=== PATIENT | female | born 1995 | race Caucasian/White ===

== ENCOUNTER 2022-02-18 07:00 | Outpatient (CLI) | payer BC, SELFPAY ==
--- NOTE | ~2022-02-18 | XR_ITS ---
EXAMINATION: XR hysterosalpingogram DATE: 02/18/2022 12:11 INDICATION: Infertility TECHNIQUE: Multiple fluoroscopic images were obtained during contrast infusion into the endometrial c anal of the uterus by the primary physician. Fluoroscopy exposure time was 0.4 minutes. A total of 3 fluoroscopic images were recorded. FINDINGS: The retroverted uterine cavity demonstrates normal morphology. The fallopian tubes are normal in alexandru iber and patent bilaterally. There is normal spillage of contrast into the peritoneum on both sides. IMPRESSION: 1. Normal hysterosalpingogram. Reviewed, dictated and finalized at location A.
--- NOTE | 2022-02-18 13:23 | W.PM.PROC2 ---
Procedure Note - Detailed Date of Procedure 02/18/22 Pre-op Diagnosis INFERTLY IT Post-op Diagnosis Same Procedure Performed Hysterosalpingogram Surgeon Brown Marie MD Anesthesia None Indications unexplained infertility Findings normal hysterosalpingogram Description of Procedure the patient was placed on the fluoroscopy table. A speculum was placed in the vagina. Cervix was grasped with a tenaculum. The catheter was placed the uterine cavity and the bulb was inflated. The speculum was removed with the angiocath still placed in the intrauterine cavity. Dye was then removed. The catheter. Fluoroscopic images obtained this process. Patient experienced some moderate to severe discomfort. The balloon of the catheter was deflated and the catheter was removed while the images were being obtained. The procedure was terminated. Patient tolerated the procedure well. There were no complications. Estimated Blood Loss 0 Complications No immediate complications Condition Stable Disposition Other
== END 2022-02-18 10:21 | disposition home or self-care (01) ==
PROVIDERS: Visit Provider Obstetrics & Gynecology
DX: Z01.89 Encounter for other specified special examinations (principal); N97.9 Female infertility, unspecified
CPT/HCPCS: 58340; 74740; Q9966

== ENCOUNTER 2022-02-18 10:30 | Outpatient (CLI) | payer BC, SELFPAY ==
[2022-02-18 11:24] LABS: Beta HCG Quantitative < 2.39 mIU/ML
== END 2022-02-18 10:31 | disposition home or self-care (01) ==
PROVIDERS: Visit Provider Advanced Practice Midwife
DX: Z01.89 Encounter for other specified special examinations (principal)
CPT/HCPCS: 36415; 84702

== ENCOUNTER 2022-12-08 13:47 | Outpatient (RCR) | payer BC, SELFPAY ==
[2022-12-08 14:26] LABS: Alanine Aminotransferase 23 U/L (6-35); Albumin Level 3.8 g/dL (3.5-5.1); Alkaline Phosphatase 102 U/L (38-126); Anion Gap 7 mmol/L (8-16); Aspartate Amino Transferase 22 U/L (14-36); Bilirubin,Total 0.5 mg/dL (0.2-1.3); Blood Urea Nitrogen 5 mg/dL (7-17); Calcium 9.2 mg/dL (8.4-10.2); Carbon Dioxide 26 mmol/L (22-30); Chloride 102 mmol/L (98-107); Estimated Glomerular Filt Rate > 60; Glucose 82 mg/dL (65-110); Potassium 4.1 mmol/L (3.4-5.0); Sodium 135 mmol/L (137-145)
[2022-12-09] MEDS: RHO(D) IMMUNE GLOBULIN 300 MCG/2 ML SYRINGE IM (13:10)
== END 2023-03-08 23:59 | disposition home or self-care (01) ==
LOC: ANHLAB 13:47
PROVIDERS: Visit Provider Obstetrics & Gynecology
DX: O36.0130 Maternal care for anti-D [Rh] antibodies, third trimester, not applicable or unspecified (principal)
CPT/HCPCS: 36415; 80053; 85461; 86850; 86900; 86901; 90384; 96372; J2790

== ENCOUNTER 2023-01-22 17:42 | Inpatient (IN) | payer BC, SELFPAY ==
[2023-01-22] VITALS (14 sets, daily range): BP systolic 84–130; BP diastolic 62–86; PULSE 92–119; TEMP 37; BMI 33.5
--- NOTE | 2023-01-22 18:29 | LDADM ---
This patient, Veronique Rivera, was admitted to Labor/Delivery/Recovery 108 on 01/22/23 at 17:42. Plans for labor, pain management and were discussed with patient. Patient/family oriented to hospital policies and general routines including ID bracelet, bed and alarms, visiting hours, pain management, procedures, bathroom and other care routines, personal items, smoking policy, room service/diet and guest tray routines, security routines, and visiting hours. Patient/Family are encouraged to report perceived risks to care and to ask questions if they do not understand what they are told or what they should do. See OBIX for further documentation.
[2023-01-22 19:19] LABS: Basophils Percent Auto 0.2 % (0.2-1.2); Eosinophils Absolute Auto 0.1 K/mm3 (0-0.3); Eosinophils Percent Auto 0.5 % (0-4.4); Hematocrit 35.2 % (37.0-47.0); Hemoglobin 11.8 g/dL (12.0-15.0); Immature Granulocyte Absolute 0.05 K/mm3 (0.00-0.031); Immature Granulocyte Percent A 0.4 % (0-0.5); Lymphocytes Absolute Auto 2.27 K/mm3 (0.9-3.2); Lymphocytes Percent Auto 17.1 % (18.3-44.2); Mean Corpuscular HGB Conc 33.5 g/dl (32-36); Mean Corpuscular Hemoglobin 31.8 pg (26-34); Mean Corpuscular Volume 94.9 fl (80-100); Mean Platelet Volume 9.3 fl (7.4-10.4); Monocytes Absolute Auto 0.6 K/mm3 (0.1-0.6); Monocytes Percent Auto 4.8 % (2.6-8.5); Neutrophils Absolute Auto 10.2 K/mm3 (1.3-6.7); Platelet Count Result 394 k/mm3 (150-375); Red Blood Count 3.71 M/mm3 (4.2-5.4); Red Cell Distribution Width 12.9 % (11.5-14.5); White Blood Count 13.3 K/mm3 (4.5-10.0)
[2023-01-22] MEDS: OXYTOCIN 30 UNITS/NS 500 ML 30 UNITS/500 ML BAG IV CONT (19:19)
[2023-01-22] MEDS: LACTATED RINGERS 1,000 ML 125 ML IV CONT (19:20)
[2023-01-22 19:30] LABS: Alanine Aminotransferase 21 U/L (6-35); Albumin Level 3.6 g/dL (3.5-5.1); Alkaline Phosphatase 135 U/L (38-126); Anion Gap 7 mmol/L (8-16); Aspartate Amino Transferase 27 U/L (14-36); Bilirubin,Total 0.4 mg/dL (0.2-1.3); Blood Urea Nitrogen 8 mg/dL (7-17); Calcium 9.6 mg/dL (8.4-10.2); Carbon Dioxide 24 mmol/L (22-30); Chloride 104 mmol/L (98-107); Estimated CRCL calculation 174 ml/min; Estimated Glomerular Filt Rate > 60; Glucose 77 mg/dL (65-110); Sodium 135 mmol/L (137-145); Uric Acid 4.2 mg/dL (2.5-7.5)
[2023-01-22 22:07] LABS: Total Protein Urine Random 180 mg/dL
[2023-01-22 23:18] LABS: Appearance Urine Turbid (Clear); Bacteria Urine 1+ /hpf; Bilirubin Urine Negative (Negative); Blood Urine 1+ (Negative); Color Urine Yellow (Yellow); Glucose Urine UA Negative (Negative); Ketones Urine Trace mg/dL (Negative); Leukocyte Esterase Ur 3+ LEU/UL (NEGATIVE); Nitrate Urine Negative (Negative); Protein Urine 2+ mg/dL (Negative); Specific Grav Ur 1.012 (1.001-1.035); Squamous Epithelial Cell Urine Moderate /hpf (Few); Urobilinogen Urine 0.2 mg/dL (<2.0); WBC Urine >100 /hpf (0-3)
[2023-01-22 23:38] LABS: Add Urine Microscopic? YES
[2023-01-23] VITALS (152 sets, daily range): BP systolic 93–142; BP diastolic 46–98; PULSE 74–133; RESP 16; TEMP 36.4–37.4; O2SAT 94–100
[2023-01-23] MEDS: LACTATED RINGERS 1,000 ML 125 ML IV CONT ×2 (03:22→09:46)
--- NOTE | 2023-01-23 03:37 | WPDANESEPP ---
Anes - Eval Pre Procedure Procedure: labor epidural Date/Time: 01/23/23 03:37 Pre Op Diagnosis: MIL Patient Data Age: 27 Gender: F Height: 1.73 m Weight: 100 kg Last Vital Signs Temp 37.0 C 01/22/23 22:33 Pulse 85 01/23/23 03:29 BP 121/82 01/23/23 03:29 O2 Del Method Room Air 01/22/23 18:32 Allergies Allergy/AdvReac Type Severity Reaction Status Date / Time No Known Allergies Allergy Verified 12/09/22 13:00 Home Medications Medication Instructions Recorded Confirmed Type ferrous sulfate 325 mg (65 mg 325 mg PO DAILY 12/31/22 01/22/23 History iron) tablet pantoprazole 20 mg tablet,delayed 20 mg PO QAM 12/31/22 01/22/23 History release Laboratory Tests 01/22/23 01/22/23 19:08 21:54 WBC 13.3 H K/mm3 (4.5-10.0) RBC 3.71 L M/mm3 (4.2-5.4) Hgb 11.8 L g/dL (12.0-15.0) Hct 35.2 L % (37.0-47.0) MCV 94.9 fl (80-100) MCH 31.8 pg (26-34) MCHC 33.5 g/dl (32-36) RDW 12.9 % (11.5-14.5) Plt Count 394 H k/mm3 (150-375) MPV 9.3 fl (7.4-10.4) Immature Gran % (Auto) 0.4 % (0-0.5) Neut % (Auto) 77.0 H % (45.5-73.1) Lymph % (Auto) 17.1 L % (18.3-44.2) [place] % (Auto) 4.8 % (2.6-8.5) Eos % (Auto) 0.5 % (0-4.4) Baso % (Auto) 0.2 % (0.2-1.2) Lymph # (Auto) 2.27 K/mm3 (0.9-3.2) [place] # (Auto) 0.6 K/mm3 (0.1-0.6) Eos # (Auto) 0.1 K/mm3 (0-0.3) Baso # (Auto) 0.0 K/mm3 (0.0-0.1) Abs Immat Gran (auto) 0.05 H K/mm3 (0.00-0.031) Absolute Neuts (auto) 10.2 H K/mm3 (1.3-6.7) Absolute Nucleated RBC 0.0 K/mm3 (0.0-0.012) Nucleated RBC % 0.0 % (0.0-0.2) Sodium 135 L mmol/L (137-145) Potassium 4.0 mmol/L (3.4-5.0) Chloride 104 mmol/L (98-107) Carbon Dioxide 24 mmol/L (22-30) Anion Gap 7 L mmol/L (8-16) BUN 8 mg/dL (7-17) Creatinine 0.50 L mg/dL (0.7-1.0) Estim Creat Clear Calc 174 ml/min Estimated GFR > 60 (59 - ) Glucose 77 mg/dL (65-110) Uric Acid 4.2 mg/dL (2.5-7.5) Calcium 9.6 mg/dL (8.4-10.2) Total Bilirubin 0.4 mg/dL (0.2-1.3) AST 27 U/L (14-36) ALT 21 U/L (6-35) Alkaline Phosphatase 135 H U/L (38-126) Total Protein 7.0 g/dL (6.3-8.2) Albumin 3.6 g/dL (3.5-5.1) Urine Color Yellow (Yellow) Urine Appearance Turbid H (Clear) Urine pH 7.0 (5.0-9.0) Ur Specific Burden 1.012 (1.001-1.035) Urine Protein 2+ H mg/dL (Negative) Urine Glucose (UA) Negative mg/dL (Negative) Urine Ketones Trace H mg/dL (Negative) Ur Blood (Man) 1+ H (Negative) Urine Nitrate Negative (Negative) Urine Bilirubin Negative (Negative) Urine Urobilinogen 0.2 mg/dL (<2.0) Ur Leukocyte Esterase 3+ H EBONI/UL (NEGATIVE) Urine RBC 3-5 H /hpf (0-2) Urine WBC >100 H /hpf (0-3) Ur Squamous Epith Cells Moderate /hpf (Few) Urine Bacteria 1+ H /hpf Urine Casts 3-5 U Random Total Protein 180 mg/dL Urine Creatinine 58.0 mg/dL Protein/Creat Ratio 2 3.10 H mg/mg (0-0.20) RPR Pending Blood Type A Negative Antibody Screen Positive Antibody Identification Passive Due to RH Imm Glob Antigen Identification Cancelled BYRON, IgG Interpret Not Performed BYRON, Poly Interpret Negative BYRON, Complement Interp Not Performed Patient hx anesthesia problems: none Family hx anesthesia problems: none Results Review: All pre-operative results and documents have been reviewed as part of the pre-operative evaluation. [facility] Past Medical History Medical History (Updated 01/23/23 @ 03:38 by Kizzy Méndez, TERESSA) Anemia Anxiety Family Hist
[2023-01-23] MEDS: cefTRIAXone 2 GM/NS 100 ML 2 GM/100 ML BAG IVPB (06:21)
[2023-01-23] MEDS: SODIUM CHLORIDE 0.9% IV 250 ML 100 ML IV CONT (07:09)
--- NOTE | 2023-01-23 07:34 | PM.IMHP ---
H&P: HPI History of Present Illness Date/Time: 01/23/23 07:34 Chief Complaint: induction of labor Narrative: Veronique is a at 38.4 for IOL due to PreE. In office monday BPs 130s/70s, which is significantly above baseline, and had gained 7# in a week. No sx. PC ratio returned at 1.57 so was sent in yesterday for induction. complicated by unilateral cleft lip. Found to have UTI on admission. Review of Systems Review of Systems: All systems reviewed & are unremarkable except as noted in HPI and below PMFSH Past Medical History Medical History (Updated 01/23/23 @ 07:36 by Minnie Black MD) Anemia Anxiety Family History Family History Mother Breast cancer Grandparent Breast cancer Social History Social History Smoking status: Never smoker Substance use: never Lack of Transportation: No Lack of Food: Never True Current Housing: I Have Housing Concerned About Future Housing: No Difficulty Paying Gas/Electric Bills: No Difficulty Paying for Meds: No Currently Unemployed: No Education: Bachelor's Degree Difficulty w/ Childcare or Family Care: No Spiritual care concerns: No Meds Home Medications and Allergies Home Medications Medication Instructions Recorded Confirmed Type ferrous sulfate 325 mg (65 mg 325 mg PO DAILY 12/31/22 01/22/23 History iron) tablet pantoprazole 20 mg tablet,delayed 20 mg PO QAM 12/31/22 01/22/23 History release Allergies Allergy/AdvReac Type Severity Reaction Status Date / Time No Known Allergies Allergy Verified 12/09/22 13:00 Vital Signs Vital Signs - 24 hr 01/22/23 18:01 01/22/23 18:15 01/22/23 19:00 Temperature Pulse Rate 101 H 98 92 Blood Pressure 129/83 118/74 123/84 Oxygen Delivery 01/22/23 19:30 01/22/23 20:00 01/22/23 20:30 Temperature Pulse Rate 98 104 H 100 Blood Pressure 128/72 126/82 109/64 Oxygen Delivery 01/22/23 21:00 01/22/23 21:30 01/22/23 22:00 Temperature Pulse Rate 105 H 119 H 102 H Blood Pressure 130/86 115/71 112/64 Oxygen Delivery 01/22/23 22:30 01/22/23 22:33 01/22/23 23:00 Temperature 98.6 F Pulse Rate 102 H 105 H Blood Pressure 117/75 84/62 L Oxygen Delivery 01/22/23 23:05 01/22/23 23:30 01/23/23 00:00 Temperature Pulse Rate 95 107 H 117 H Blood Pressure 118/78 86/63 L 104/71 Oxygen Delivery 01/23/23 00:30 01/23/23 01:30 01/23/23 02:00 Temperature Pulse Rate 92 84 85 Blood Pressure 119/79 122/73 121/77 Oxygen Delivery 01/23/23 03:29 01/23/23 04:00 01/23/23 04:30 Temperature Pulse Rate 85 99 89 Blood Pressure 121/82 107/64 114/66 Oxygen Delivery 01/23/23 05:00 01/23/23 06:00 01/23/23 06:30 Temperature Pulse Rate 90 91 92 Blood Pressure 109/63 132/83 124/78 Oxygen Delivery 01/23/23 07:00 01/23/23 07:30 01/22/23 18:32 Temperature Pulse Rate 98 100 Blood Pressure 118/83 134/80 Oxygen Delivery Room Air Exam Const: General: no acute distress Resp: Effort & Inspection: normal respiratory effort Auscultation: clear to auscultation bilaterally Cardio: Rate: regular rate Rhythm: regular rhythm GI: GI Palp: Yes Soft to palpation Extrem: General: normal to inspection H&P: Results Labs Labs: Short CBC 01/22/23 Range/Units 19:08 WBC 13.3 H (4.5-10.0) K/mm3 Hgb 11.8 L (12.0-15.0) g/dL Hct 35.2 L (37.0-47.0) % Plt Count 394 H (150-375) k/mm3 BMP 01/22/23 19:08 Sodium 135 L Potassium 4.0 Chloride 104 Carbon Dioxide 24 BUN 8 Creatinine 0.50 L Glucose 77 Calcium 9.6 Liver Function 01/22/23 Range/Units 19:08 Total Bilirubin 0.4 (0.2-1.3) mg/dL AST 27 (14-36) U/L ALT 21 (6-35) U/L Alkaline Phosphatase 135 H (38-126) U/L Albumin 3.6 (3.5-5.1) g/dL Urine 01/22/23 Range/Uni
[2023-01-23 12:48] LABS: Rapid Plasma Reagin Non-Reactive (NonReactive)
[2023-01-23] MEDS: OXYTOCIN 30 UNITS/NS 500 ML 30 UNITS/500 ML BAG 125 UNITS IV CONT (16:16)
--- NOTE | 2023-01-23 17:23 | P.PCNOB_ITS ---
OB - Delivery Note Procedure Delivery date: 01/23/23 Procedure: Events: Preeclampsia w/o severe features Induction method: AROM and Per Pitocin Protocol Delivery monitor: External FHT and Internal Uterine Route of delivery: Laceration Description: Perineal - 2nd Degree Delivery repair: vicryl Quantitative Blood Loss (ml): 250 Anesthesia type: Epidural Disposition: Floor Narrative: With adequate expulsive efforts by the mother, the baby's head was delivered OA. The baby's anterior shoulder was delivered under the pubic symphysis without difficulty. The posterior shoulder and the rest of the baby delivered without difficulty. The infant was placed on the mothers chest and suctioned and stimulated. The cord was clamped and cut after 30 seconds. Mother and baby both stable. [place] Baby Date of : 01/23/23 Time of : 15:54 Weeks of gestation at delivery: 38 Infant gender: Male presentation: vertex Placenta delivery description: Spontaneous Cord Vessel Description: 3 Vessels and Delayed Cord Clamping score one minute: 9 score five minutes: 9
[2023-01-23] MEDS: ACETAMINOPHEN 325 MG TABLET 650 MG PO (17:27)
[2023-01-24 00:10] VITALS: BP 128/80; PULSE 99; RESP 16; TEMP 37.2; O2SAT 100
[2023-01-24 04:40] LABS: Hematocrit 30.6 % (37.0-47.0); Hemoglobin 10.2 g/dL (12.0-15.0)
[2023-01-24] MEDS: cefTRIAXone 2 GM/NS 100 ML 2 GM/100 ML BAG IVPB (07:00)
[2023-01-24] MEDS: ACETAMINOPHEN 325 MG TABLET 650 MG PO (07:02)
--- NOTE | 2023-01-24 08:09 | PM.OBPNVD ---
OB - PN: Subj Subjective Date/time seen: 01/24/23 08:09 Patient comments: no complaints, pain well controlled and tolerating diet [place] baby status: doing well and nursing well [place] feeding status: exclusively breast feeding Narrative: UTI sx improving. BPs 100s-130s/50s-90s. Denies PreE sx. OB - PN: Obj Data Labs 01/24/23 04:25 01/22/23 19:08 Labs: Laboratory Results - last 24 hr 01/22/23 01/24/23 19:08 04:25 Hgb 10.2 L Hct 30.6 L RPR Non-reactive OB - PN A/P Plan day: 1 Plan: routine care Comments: consult today- cleft lip consented for circ, circ done s/p rocephin x2 for UTI BPs stable, continue to monitor. Time Spent With Patient Time: Total time spent is greater than 50% in coordination of care (as documented) at patient's floor/unit and/or counseling patient: Time with patient: less than 15 minutes Exam Narrative: NAD abdomen soft, nontender, fundus firm below the umbilicus Extremities nontender, 1+ edema
[2023-01-24 08:30] VITALS: BP 129/78; PULSE 105; RESP 18; TEMP 36.7; O2SAT 99
[2023-01-24] MEDS: MULTIVIT/MIN/PREN/FOL AC/IRON TABLET 1 TAB PO (08:36)
[2023-01-24] MEDS: DOCUSATE SODIUM 100 MG CAPSULE PO (08:36)
[2023-01-24] MEDS: LANOLIN (LANSINOH) 7.5 GM CREAM 1 APPLIC TOPICAL (08:36)
--- NOTE | 2023-01-24 08:43 | WPDANLDPN2 ---
Anes-Prog Note L&D Date/Time: 01/24/23 08:43 Comfortable throughout: labor and delivery Neuraxial method: epidural Epidural/Spinal procedure site: clean & non-tender Neuro status: Neuro function grossly intact. Cardiovascular status: normal Respiratory status: normal Airway patency: baseline Mental status: baseline Post-Op hydration status: normal Vital Signs: Last Vital Signs Temp 37.2 C 01/24/23 00:10 Pulse 99 01/24/23 00:10 Resp 16 01/24/23 00:10 BP 128/80 01/24/23 00:10 Pulse Ox 100 01/24/23 00:10 O2 Del Method Room Air 01/22/23 18:32 Pain score (VAS): 05/10 Post-procedural complaints: none Patient feedback: Patient satisfied with anesthetic care.
[2023-01-24 13:01] VITALS: BP 114/69; PULSE 94; RESP 16; TEMP 37.1; O2SAT 99
--- NOTE | 2023-01-24 13:30 | PC.NURSE ---
[id number] Introductions were made, then consulted with patient to assess needs related to . Mother led the conversation with her?plans to feed?her infant with a cleft lip, the?experience so far and has at the breast sleeping with nipple at the tip of the lip. Mother states has been latching to the breast, however, RN has concerns related to the smooth nipples, that are inverted with dimples and firm around the base of the nipple. Encouraged understanding of the benefits of skin to skin (demonstrating unwrapping and placing upright on her chest), stimulating with massage touch, changing positions to encourage wakefulness, how to watch for early feeding cues, responsive feeding, feeding on demand (aiming for 8-12 times in 24 hours, about every 2-3 hours), milk production, hand expression, building/maintaining a milk supply, duration of feeding, signs of adequate intake/output and how to record on the feeding sheet. Reviewed positioning and ear, shoulder, hip alignment, supporting the breast to facilitate a deep latch, asymmetrical latch (off-center), leading with the chin with a big, open, wide gape and body close to mother. We attempted to latch and the was unable to latch. Reviewed good handwashing when or touching the breast/nipples to prevent infection. Resources used to facilitate learning were used with the tool, mom and baby guide. RN recommended initiating hand expression, nipple stretching and pumping to protect her milk supply. 0915 - 0930 Breast pump provided due to ineffective . Instructions given on cleaning, care, usage, that there should be no pain, pumping schedule for milk production, collection, and storage of human milk. Parents are encouraged to record pumping schedule on the feeding sheet. Patient was assessed for correct placement, flange size, to pump for comfort and nipple stretching/stimulation for adequate milk production every 2-3 hours (8 times in 24 hours) 1-2 times at night. Mother voiced understanding of the education shared along with mom and baby guide for additional resource information. [id number] Consulted with patient to assess needs related to . Mother works well with her infant with encouragement. Mother is [id number] with her . Reviewed working with , supporting breast and how to protect the nipples with an optimal deep latch, good positioning, and good hand washing. Reviewed positioning and alignment, supporting breast, off-centered (asymmetrical latch) and leading with the chin with big, open, wide gape. was attempted to breastfeed with no successful latch. We finger fed colostrum to infant. Nipple care reviewed with optimal latch, good positioning and using clean hands when feeding her and touching her breast. Resources used to facilitate learning were used from the tool, mom and baby guide. Mother voiced understanding of the education shared, to call for assistance if the infant does not latch or if there is discomfort with . Reported to the primary RN. [id number] was [id number] with mother sleepy and reluctant. Mother is encouraged to pump her breast to protect her milk supply. After pumping the 2-3mls of colostrum was spoon fed to the . Parents voiced understanding of skin to skin, stimulating with massage touch, responsive feedings, hand expressed colostrum, talking to to encourage if it has been 2 -2.5 hours since the start of the last , to call if does not latch, if there is discomfort with . Parents voiced understanding of information, demonstrated learning and will call if there is a request for assistance. Resources provided for inpatient and outpatient services with the feeding sheet, mom/baby guide and name written on the white board. Mother voiced understanding of information and will call if there is a r
[2023-01-24 16:15] VITALS: BP 139/88; PULSE 108
[2023-01-24 19:25] VITALS: BP 142/90; PULSE 87; RESP 18; TEMP 37.2; O2SAT 99
[2023-01-24 23:45] VITALS: BP 129/82
[2023-01-25 06:41] VITALS: BP 123/84; PULSE 90; RESP 18; TEMP 36.9; O2SAT 98
--- NOTE | 2023-01-25 07:18 | PM.OBPNVD ---
OB - PN: Subj Subjective Date/time seen: 01/25/23 07:18 Patient comments: no complaints baby status: doing well Narrative: BPs last 24 hours 114-142/69-90. Denies PreE sx. UTI sx resolved after second dose of rocephin. OB - PN: Obj Data Labs 01/24/23 04:25 01/22/23 19:08 OB - PN A/P Plan day: 2 Plan: routine care and discharge home Comments: PreE precautions given Time Spent With Patient Time: Total time spent is greater than 50% in coordination of care (as documented) at patient's floor/unit and/or counseling patient: Time with patient: less than 15 minutes Exam Narrative: NAD abdomen soft, nontender, fundus firm below the umbilicus Extremities nontender, 1+ edema
--- NOTE | 2023-01-25 07:21 | P.DS_ITS ---
DS: Admitting Diagnosis Discharge Date 01/25/23 Admitting Diagnosis PreE at term, cleft lip DS: Discharge Diagnosis Discharge Diagnosis (1) , delivered: Code(s): O80 - Encounter for full-term uncomplicated delivery Status: Acute (2) UTI (urinary tract infection): Code(s): N39.0 - Urinary tract infection, site not specified Status: Acute OB - DS: Summary Hospital Course Hospital Course: Veronique was admitted for induction due to preeclampsia at term. She was also diagnosed with a UTI. She received rocephin IV. She had an uncomplicated vaginal delivery and course and was discharged home on PPD 2. Her BPs were normal to mildly elevated and she never had symptoms of PreE. OB Procedures : Ultrasound OB Procedures Intrapartum: Spontaneous Vag Delivery OB Procedures: : None Peripartum Data Infant Delivery Method: Natural Vaginal complications: none Status at Discharge Functional status at discharge: independent ambulation Time Spent with Patient Time attestation: Total time spent providing and/or coordinating discharge services: Exam Narrative: NAD abdomen soft, appropriately tender Ext non tender, 1+ edema DS: Data Data Completed and Pending Labs on day of discharge: Preliminary micro results at discharge 01/22/23 21:54 Urine Culture - Preliminary Clean Catch Midstream Escherichia Coli Discharge Plan Discharge Attending physician on discharge: Minnie Black Discharging Clinician: Minnie Black Anticipated Discharge Date/Time: 01/25/23 07:20 Patient Disposition: Home, Self-Care Activity: pelvic rest Diet: regular Patient Instructions: Antibiotic Form Stand Alone Forms: General Discharge Information Follow-up/Referrals: Minnie Black MD [Physician] - 1 Week Discharge Medications: Continued pantoprazole 20 mg Tablet,Delayed Release (Dr/Ec) 20 mg PO QAM ferrous sulfate 325 mg (65 mg iron) Tablet 325 mg PO DAILY Date of admission: 01/22/23 17:42 Primary Care Provider: PHYSICIAN,DIRECTOR OF PULMONARY UNIT Admitting Provider: Minnie Black Attending physician on admission: Minnie Black Condition: Stable
--- NOTE | 2023-01-25 09:34 | PC.NURSE ---
On 01/25/23, the student, Nimisha Coles, provided care and completed [facility] documentation on this patient. I have reviewed the student's documentation and agree with the findings.
[2023-01-25] MEDS: WITCH HAZEL 40 PADS 1 PAD (12:10)
[2023-01-25] MEDS: BENZOCAINE 20% AER SPR (*SP) 56 GM CAN 1 SPRAY TOPICAL (12:10)
[2023-01-25] MEDS: MULTIVIT/MIN/PREN/FOL AC/IRON TABLET 1 TAB PO (12:11)
[2023-01-26 11:18] VITALS: BP 122/85; PULSE 92; RESP 18; TEMP 36.6; O2SAT 98
== END 2023-01-25 12:18 | disposition home or self-care (01) | DRG 806 ==
LOC: ANHLDR 17:48 → ANHOB2 01-23 18:51
PROVIDERS: Admitting Provider Obstetrics & Gynecology; Visit Provider Obstetrics & Gynecology
DX: O14.04 Mild to moderate pre-eclampsia, complicating childbirth (principal); N39.0 Urinary tract infection, site not specified; Z37.0 Single live birth; Z3A.38 38 weeks gestation of pregnancy; O70.1 Second degree perineal laceration during delivery; O69.81X0 Labor and delivery complicated by cord around neck, without compression, not applicable or unspecified; O99.02 Anemia complicating childbirth; D64.9 Anemia, unspecified; O99.344 Other mental disorders complicating childbirth; O75.3 Other infection during labor
CPT/HCPCS: 36415; 80053; 81001; 82570; 84156; 84550; 85014; 85018; 85025; 86592; 86850; 86880; 86900; 86901; 87077; 87086; 87186; A9270; J0696; J2590; J2795; J7050; J7120

== ENCOUNTER 2024-10-21 18:10 | Observation (INO) | payer OTHER, SELFPAY ==
[2024-10-21] VITALS (20 sets, daily range): BP systolic 107–118; BP diastolic 67–71; PULSE 73–98; TEMP 36.4; O2SAT 98–100; BMI 36.1
--- NOTE | 2024-10-21 18:10 | PC.NURSE ---
Pt arrives to unit with cramping after toddler jumped on stomach at 1630.
--- NOTE | 2024-10-21 18:31 | OBADM ---
This patient, Veronique Rivera, admitted to the OB room OB Post 117 for observation. Patient/family oriented to hospital policies and general routines including ID bracelet, bed and alarms, visiting hours, pain management, procedures, bathroom and other care routines, personal items, smoking policy, room service/diet, and visiting hours. Patient/Family are encouraged to report perceived risks to care and to ask questions if they do not understand what they are told or what they should do.
--- NOTE | 2024-10-21 19:31 | PC.NURSE ---
Dr. Lexus Sheth returned page, update on pt, cramping after toddler jumped on stomach, no pain at this time, no contractions, no vaginal bleeding, tracing Category I, and blood pressure. Orders received to draw Humberto Rodas, Dr. Lexus Sheth will call pt if positive result, discharge pt with instructions to keep next scheduled appointment, and when to return to the unit.
--- NOTE | 2024-10-21 20:09 | PC.NURSE ---
Pt discharged with instructions of Dr. Lexus Sheth to call if Humberto Rodas result is positive, keep next scheduled appointment, and when to return to the unit, pt verbalizes understanding.
--- NOTE | 2024-10-23 07:03 | PM.OBTRLD ---
OB - Triage/Final Diagnosis Visit Information Reason for evaluation: threatened labor Comments/Additional reasons for admission: I have assessed the risk for this patient, Veronique Brothers Rivera, and determined that she would benefit from observation care. Evaluation Laboratory results: Laboratory Tests 10/21/24 19:45 KB Hemoglobin Negative
== END 2024-10-21 20:09 | disposition home or self-care (01) ==
PROVIDERS: Admitting Provider Obstetrics & Gynecology; Visit Provider Obstetrics & Gynecology
DX: O47.02 False labor before 37 completed weeks of gestation, second trimester (principal); Z3A.27 27 weeks gestation of pregnancy
CPT/HCPCS: 36415; 85460; G0378; G0379

== ENCOUNTER 2024-10-31 07:07 | Outpatient (CLI) | payer OTHER, SELFPAY ==
--- OUTSIDE RECORDS SUMMARY | 2024-10-31 07:14 | XMS_ITS | Encounter Summary ---
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 Name Role Phone Vita Leon [facility] Primary Care Provider + Encounter Details Date Type Department Care Team (Late st Contact Info) Description 09/26/[address] [phone] [facility] Provider Lab results Social History Tobacco Use Types Packs/Day Years Used Date Smoking Tobacco: Never Smokeless Tobacco: Never Alcohol Use Standard Drinks/Week Comments Yes 3 (1 standard drink = 0.6 oz pur e alcohol) PHQ-2 Answer Date Recorded Patient Health Questionnaire-2 Score 0 09/21/2023 Comments No Sex and Gender Information Value Date Recorded Sex Assigned at Female 06/05/2024 5:49 PM AUTO SERVICER Legal Sex Female 11:19 PM CDT Gender Identity Female 11/05/2021 9:56 AM CDT Sexual Orientation Straight 11/05/2021 9: 56 AM CDT documented as of this encounter Plan of Treatment Not on file documented as of this encounter Visit Diagnoses Not on filedocumented in this encounter Additional Health Concerns Infection Onset Date Last Indicated Resolved Time COVID-19 Rule Out 06/05/2024 06/05/2024 06/05/2024 5:38 PM AUTO SERVICER documented as of this encounter Care Teams Metal Bonding Press Operator Relationship Specialty Start Date End Date Vita Leon [facility] [address] [place] [address], [address] [place] [id number] PCP - General NURSE PRACTITIONER 11/13/18 documented as of this encounter
--- OUTSIDE RECORDS SUMMARY | 2024-10-31 07:14 | XMS_ITS | Data Portability ---
Author Organization [facility] [place] Address [address] [place] [address] [place] [address] Care Team Providers Care Master Ocean Name Role Phone ABDOULAYEDARVIN GIGI Primary Care Provider FORTUNATO MESSER Primary Care Provider Assessment No assessment recorded. Plan of Treatment Reminders Order Date Submit Date Provider Last Modified By Organization Details Last Modified Time Details Appointments None record ed. Lab None record ed. Referral None record ed. Procedures None record ed. Surgeries None record ed. Imaging US, obstet morelia, follow -up 023 01/14/20 23 [email or web address] [place] [facility] [address], [address], [place], [address], 17:19:03 Medication Orders None record ed. Patient TargetsNo targets recorded. Patient InstructionsNo instructions recorded. Reason for Referral None Reported. Results Created Date Observation Date Name Description Value Unit Range Abnormal Flag Note LastModifiedBy Organization Detail LastModifiedTime 01/21/2001/20/2023 CBC W/DIF F WBC 9.0 10'3/ uL 3.6-10 .2 Not Available [facility] (Lab) [address], [place], [address], 01/21/2023 08:57:33 01/21/20 23 01/20/2023 CBC W/DIF F RBC 3.96 10'6/ uL (based on docume nted legal sex) 4.10-5 .30 low Not Available [facility] (Lab) [address], [place], [address], 01/21/2023 08:57:33 01/21/20 23 01/20/2023 CBC W/DIF F HGB 12.2 g/dL (based on docume nted legal sex) 11.9-1 5.8 Not Available [facility] (Lab) [address], [place], [address], 01/21/2023 08:57:33 01/21/20 23 01/20/2023 CBC W/DIF F HCT 38.2 % (based on docume nted legal sex) 37.4-4 8.3 Not Available [facility] (Lab) [address], [place], [address], 01/21/2023 08:57:33 01/21/20 23 01/20/2023 CBC W/DIF F MCV 96.5 fL 82.0-9 9.0 Not Available [facility] (Lab) [address], [place], [address], 01/21/2023 08:57:33 01/21/20 23 01/20/2023 CBC W/DIF F MCH 30.8 pg 27.0-3 3.0 Not Available [facility] (Lab) [address], [place], [address], 01/21/2023 08:57:33 01/21/20 23 01/20/2023 CBC W/DIF F MCHC 31.9 g/dL 32.0-3 6.0 low Not Available [facility] (Lab) [address], [place], [address], 01/21/2023 08:57:33 01/21/20 23 01/20/2023 CBC W/DIF F RDW 13.2 % 11.0-1 5.0 Not Available [facility] (Lab) [address], [place], [address], 01/21/2023 08:57:33 01/21/20 23 01/20/2023 CBC W/DIF F plt 461 10'3/ uL 150-45 0 high Not Available [facility] (Lab) [address], [place], [address], 01/21/2023 08:57:33 01/21/20 23 01/20/2023 CBC W/DIF F MPV 9.4 fL 9.8-12 .7 low Not Available [facility] (Lab) [address], [place], [address], 01/21/2023 08:57:33 01/21/20 23 01/20/2023 CBC W/DIF F NRBC's 0.0 % 0 Not Available [facility] (Lab) [address], [place], [address], 01/21/2023 08:57:33 01/21/20 23 01/20/2023 CBC W/DIF F absolute NRBCs 0.0 10'3/ uL 0 Not Available [facility] (Lab) [address], [place], [address], 01/21/2023 08:57:33 01/21/20 23 01/20/2023 CBC W/DIF F neutrophils 69.1 % 37.0-7 2.0 Not Available [facility] (Lab) [address], [place], [address], 01/21/2023 08:57:33 01/21/20 23 01/20/2023 CBC W/DIF F lymphocytes 25.3 % 16.0-4 8.0 Not Available [facility] (Lab) [address], [place], [address], 01/21/2023 08:57:33 01/21/20 23 01/20/2023 CBC W/DIF F monocytes 4.6 % 4.0-14 .0 Not Available [facility] (Lab) [address], [place], [address], 01/21/2023 08:57:33 01/21/20 23 01/20/2023 CBC W/DIF F eosinophils 0.6 % 0.0-9. 0 Not Available [facility] (Lab) [address], [place], [address], 01/21/2023 08:57:33 01/21/20 23 01/20/2023 CBC W/DIF F basophils 0.1 % 0.0-2. 0 Not Available [facility] (Lab) [address], [place], [address], 01/21/2023 08:57:33 01/21/20 23 01/20/2023 CBC W/DIF F immature granulocytes 0.3 % no define d refere nce range Not Available [facility] (Lab) [address], [place], [address], 01/21/2023 08:57:33 01/21/20 23 01/20/2023 CBC W/DIF F absolute neutrophils 6.2 10'3/ uL 1.1-6. 0 high Not Available [facility] (Lab) [address], [place], [address], 01/21/2023 08:57:33 01/21/20 23 01/20/2023 CBC W/DIF F absolute lymphocytes 2.3 10'3/ uL 0.7-3. 4 Not Available [facility] (Lab) [address], [place], [address], 01/21/2023 08:57:33 01/21/20 23 01/20/2023 CBC W/DIF F absolute monocytes 0.4 10'3/ uL 0.3-1. 0 Not Available [facility] (Lab) [address] [address], [place], [address], 01/21/2023 08:57:33 01/21/20 23 01/20/2023 CBC W/DIF F absolute eosinophils 0.1 10'3/ uL 0.0-0. 6 Not Available [facility] (Lab) [address], [place], [address], 01/21/2023 08:57:33 01/21/20 23 01/20/2023 CBC W/DIF F absolute basophils 0.0 10'3/ uL 0.0-0. 1 Not Available [facility] (Lab) [address], [place], [address], 01/21/2023 08:57:33 01/21/20 23 01/20/2023 CBC W/DIF F absolute immature granulocytes 0.0 10'3/ uL 0.00-0 .10 2022 5:16 AM: P indic ates parti al resul ts on a panel have been relea sed. Addit ional resul ts will follo w. 2022 5:16 AM: This resul t has been final verif ied. No addit ional or norris ed resul ts are expec jacek. Not Available [facility] (Lab) [address], [place], [address], 01/21/2023 08:57:33 01/21/20 23 01/20/2023 CMP(C OMPRE HENSI VE METAB OLIC PANEL ) sodium 137 mmol/ L 133-14 6 Not Available [facility] (Lab) [address], [place], [address], 01/21/2023 08:57:34 01/21/20 23 01/20/2023 CMP(C OMPRE HENSI VE METAB OLIC PANEL ) potassium 4.5 mmol/ L 3.5-5. 1 Not Available [facility] (Lab) [address], [place], [address], 01/21/2023 08:57:34 01/21/20 23 01/20/2023 CMP(C OMPRE HENSI VE METAB OLIC PANEL ) chloride 106 mmol/ L 98-107 Not Available [facility] (Lab) [address], [place], [address], 01/21/2023 08:57:34 01/21/20 23 01/20/2023 CMP(C OMPRE HENSI VE METAB OLIC PANEL ) carbon dioxide 21 mmol/ L 21-31 Not Available [facility] (Lab) [address], [place], [address], 01/21/2023 08:57:34 01/21/20 23 01/20/2023 CMP(C OMPRE HENSI VE METAB OLIC PANEL ) anion gap 10 mmol/ L 4-13 Not Available [facility] (Lab) [address], [place], [address], 01/21/2023 08:57:34 01/21/20 23 01/20/2023 CMP(C OMPRE HENSI VE METAB OLIC PANEL ) blood urea nitrogen 6 mg/dL 7-25 low Not Available [facility] (Lab) [address], [place], [address], 01/21/2023 08:57:34 01/21/20 23 01/20/2023 CMP(C OMPRE HENSI VE METAB OLIC PANEL ) creatinine 0.52 mg/dL 0.60-1 .30 low Not Available [facility] (Lab) [address], [place], [address], 01/21/2023 08:57:34 01/21/20 23 01/20/2023 CMP(C OMPRE HENSI VE METAB OLIC PANEL ) egfrcr (CKD-epi 2020) >90 mL/mi n/1.7 3_m2 >=60 Not Available [facility] (Lab) [address], [place], [address], 01/21/2023 08:57:34 01/21/20 23 01/20/2023 CMP(C OMPRE HENSI VE METAB OLIC PANEL ) calcium 9.5 mg/dL 8.3-10 .5 Not Available [facility] (Lab) [address], [place], [address], 01/21/2023 08:57:34 01/21/20 23 01/20/2023 CMP(C OMPRE HENSI VE METAB OLIC PANEL ) glucose 66 mg/dL 70-100 low Not Available [facility] (Lab) [address], [place], [address], 01/21/2023 08:57:34 01/21/20 23 01/20/2023 CMP(C OMPRE HENSI VE METAB OLIC PANEL ) protein, total 6.6 g/dL 6.4-8. 3 Not Available [facility] (Lab) [address], [place], [address], 01/21/2023 08:57:34 01/21/20 23 01/20/2023 CMP(C OMPRE HENSI VE METAB OLIC PANEL ) albumin 3.5 g/dL 3.5-5. 0 Not Available [facility] (Lab) [address], [place], [address], 01/21/2023 08:57:34 01/21/20 23 01/20/2023 CMP(C OMPRE HENSI VE METAB OLIC PANEL ) ALT 16 units /L 9-43 Not Available [facility] (Lab) [address], [place], [address], 01/21/2023 08:57:34 01/21/20 23 01/20/2023 CMP(C OMPRE HENSI VE METAB OLIC PANEL ) alkaline phosphatase 153 units /L 34-104 high Not Available [facility] (Lab) [address], [place], [address], 01/21/2023 08:57:34 01/21/20 23 01/20/2023 CMP(C OMPRE HENSI VE METAB OLIC PANEL ) AST 16 units /L 13-39 Not Available [facility] (Lab) [address], [place], [address], 01/21/2023 08:57:34 01/21/20 23 01/20/2023 CMP(C OMPRE HENSI VE METAB OLIC PANEL ) bilirubin, total 0.3 mg/dL 0.2-1. 2 Not Available [facility] (Lab) [address], [place], [address], 01/21/2023 08:57:34 01/21/20 23 01/20/2023 URIC ACID uric acid 4.5 mg/dL 2.3-6. 6 Not Available [facility] (Lab) [address], [place], [address], 01/21/2023 08:57:34 01/21/20 23 01/20/2023 PROTE IN/CR EATIN INE RATIO , URINE creatinine, urine 53.6 mg/dL R-No refer ence range estab lishe d for this assay Not Available [facility] (Lab) [address], [place], [address], 01/21/2023 08:57:35 01/21/20 23 01/20/2023 PROTE IN/CR EATIN INE RATIO , URINE protein, urine 84 mg/dL R-No refer ence range estab lishe d for this assay Not Available [facility] (Lab) [address], [place], [address], 01/21/2023 08:57:35 01/21/20 23 01/20/2023 PROTE IN/CR EATIN INE RATIO , URINE protein/crea tinine ratio, urine 1.57 . No Refer ence Range avail able for Rando m Urine s. A prote in to creat inine ratio of >=0.1 9 is a good predi ctor of signi fican t prote inuri a. A level of <0.14 can rule out signi fican t prote inuri a. Not Available [facility] (Lab) [address], [place], [address], 01/21/2023 08:57:35 12/15/19 23 12/14/2022 US, obste tric, follo w-up No observ ation record ed. [email or web address] [address] [facility] [address], [place], [address], 12/14/2022 18:50:57 12/15/19 23 12/14/2022 US, obste tric, follo w-up No observ ation record ed. [email or web address] [place] [address], [place], [address], 12/21/2022 07:09:30 12/23/19 23 12/22/2022 non-s tress test No observ ation record ed. [email or web address] [place] [address], [place], [address], 12/22/2022 14:04:25 12/23/19 23 12/22/2022 US, obste tric, bioph ysica l profi le + non-s tress test No observ ation record ed. [email or web address] [place] [address], [place], [address], 12/22/2022 16:00:14 12/23/19 23 12/22/2022 US, obste tric, bioph ysica l profi le + non-s tress test No observ ation record ed. GUILLERMO Vieira [address], [place], [address], 12/23/2022 23:04:47 01/14/20 23 01/13/2023 US, obste tric, follo w-up No observ ation record ed. [email or web address] [place] [address], [place], [address], 01/13/2023 16:20:56 01/14/2001/13/2023 US, obste tric, follo w-up No observ ation record ed. GUILLERMOBARBARA V[address], [place], [address], 01/25/2023 20:14:31 Result Notes None recorded. 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 12:07:08 Body mass index 30+ - obesity 443099133 Completed 201602/15/2021 Body mass index (BMI) 32.0-32. 9, adult;Re corded Elsewher e: No Locat ion: [facility] N Austinti ce ID: [id number] Kaleb lable Time: 09:00:00 AM Erika pemberton, [facility] 12:07:01 Screenin g for malignan t neoplasm of cervix Completed 201602/15/2021 Screenin g for malignan t neoplasm s of the cervix;R ecorded Elsewher e: No Locat ion: [facility] S ource: EHR Senior Chemical Engineer edgardo: N Austinti ce ID: [id number] Kaleb lable Time: 09:00:00 AM Erika pemberton, [facility] 12:07:03 Pregnanc y test negative [id number] Completed 201402/15/2021 Pregnanc y examinat ion or test, negative result;R ecorded Elsewher e: No Locat ion: [facility] S ource: EHR Senior Chemical Engineer edgardo: N Austinti ce ID: [id number] Kaleb lable Time: 10:30:00 AM Erika pemberton, [facility] 12:07:[address] Concept Completed 201702/15/2021 Encntr for general adult medical exam w/o abnormal findings ;Recorde d Elsewher e: No Locat ion: [facility] S ource: EHR Senior Chemical Engineer edgardo: N Practi ce ID: [id number] Kaleb lable Time: 08:30:00 [facility] 12:07:06 Educatio n Completed 201402/15/2021 Other general counseli ng and advice on contrace ptive manageme nt;Recor ded Elsewher e: No Locat ion: Chanda pope [facility] S ource: EHR Senior Chemical Engineer edgardo: N Practi ce ID: [id number] Kaleb lable Time: 10:30:00 AM Erika Hilton [facility] 1 12:07:09 Pregnanc y 84202208 Completed 202202/03/2023 Basilio Conrad [facility] 3 13:41:01 Non-alco holic fatty liver 420599302 Active elevated LFTs for at least 3 years, MORROW neg, were decreasi ng with diet and exercise -- baseline CMP, repeat q trimeste r 08/18/22 LFTs - Normal Basilio Conrad [facility] 3 13:40:55 Non-alco holic fatty liver 283176744 Completed elevated LFTs for at least 3 years, MORROW neg, were decreasi ng with diet and exercise -- baseline CMP, repeat q trimeste r 08/18/22 LFTs - Normal Basilio Conrad [facility] 3 13:40:55 cleft lip 06859707719 104 Active right- MFM at [facility] 12/14 u/s and md visit - No further appointm ents schd/nee ded by MFM! Basilio Conrad [facility] 3 13:40:55 cleft lip 56577128790 104 Completed right- MFM at [facility] 12/14 u/s and md visit - No further appointm ents schd/kunale ded by M! Basilio Conrad [facility] 3 13:40:55 RhD negative 839105776 Active Basilio Conrad [facility] 3 13:40:55 RhD negative 485303512 [facility] 3 13:40:55 Problem Notes None recorded. Procedures Surgical History Date Name Laterality Status Provider Name and Address Organization Details Recorded Time 2022 Date of Last Pap Smear completed [facility] 06/16/2022 14:17:40 2021 hysterosalpingography completed [facility] 04/13/2022 15:05:26 2016 extraction of wisdom tooth completed [facility] 12/15/2021 17:01:12 Imaging Results None recorded. Procedure Notes None recorded. Medical Equipment None Reported. Allergies No known drug allergies Medications Name Sig Start Date Stop Date Status Note LastModified by Organization Details LastModified Time ondansetr on HCl 8 mg tablet 02/15 completed Not Available Not Available Not Available Diflucan 150 mg tablet take 1 tablet by oral route once 12/04 completed Prescrib ed Elsewher e: No Locat ion: Chanda pope [facility] M odify By: favio south DateTime : 12/10/19 17 11:22:18 AM Not Available Not Available Not Available cephalexi n 500 mg capsule TAKE 1 CAPSULE BY MOUTH TWICE DAILY FOR 7 DAYS 03/06 completed Not Available Not Available Not Available pantopraz ole 40 mg tablet,de layed release TAKE 1 TABLET BY MOUTH EVERY DAY 03/06 completed Not Available Not Available Not Available promethaz ine 25 mg tablet 02/15 completed Not Available Not Available Not Available hydroxyzi ne HCl 25 mg tablet TAKE 2 TABLETS BY MOUTH EVERY NIGHT BEFORE BEDTIME NEEDED. MAY TAKE 1 TABLET 2 TIMES DAILY DURING THE DAY FOR ANXIETY NEEDED 07/20 completed Not Available Not Available Not Available nitrofura ntoin monohydra te/macroc rystals 100 mg capsule TAKE 1 CAPSULE BY MOUTH TWICE DAILY FOR 7 DAYS 08/18 completed Not Available Not Available Not Available Vestura (28) 3 mg-0.02 mg tablet TAKE 1 TABLET BY ORAL ROUTE EVERY DAY 12/02 completed Prescrib ed Migdalia e: No Locat ion: Chanda pope [facility] M odify By: carmen Pope ncounter DateTime : 11/01/19 08:00:01 AM Not Available Not Available Not Available Aurovela Fe 1-20 (28) 1 mg-20 mcg (21)/75 mg (7) tablet TAKE 1 TABLET BY MOUTH EVERY DAY 02/15 completed Not Available Not Available Not Available EluRyng 0.12 mg-0.015 mg/24 hr vaginal ring INSERT 1 RING(S) VAGINALL Y EVERY MONTH 02/16 completed Not Available Not Available Not Available Zepbound 2.5 mg/0.5 mL subcutane ous pen injector ADMINIST ER 2.5 MG UNDER THE SKIN 1 TIME A WEEK FOR WEIGHT LOSS active Not Available Not Available No t Available Vitals Date Recorded Body height Body mass index (BMI) Body weight Systolic blood pressure Diastolic blood pressure Provider Name and Address Organization Details Last Updated DateTime 01/13/2023 172.72 cm 37.3 kg/m2 698978.1 3065 g 127 mm[Hg] 88 mm[Hg] [facility] 3 14:35:33 Date Recorded Body height Body mass index (BMI) Body weight Systolic blood pressure Diastolic blood pressure Provider Name and Address Organization Details Last Updated DateTime 01/20/2023 172.72 cm 38.3 kg/m2 068060.2 7724 g 132 mm[Hg] 89 mm[Hg] [facility] 3 14:32:45 Date Recorded Body height Body mass index (BMI) Provider Name and Address Organization Details Last Updated DateTime 01/31/2023 172.72 cm 35.4 kg/m2 Sloane Chung [facility] 01/31/2023 10:44:15 Date Recorded Body height Body mass index (BMI) Body weight Systolic blood pressure Diastolic blood pressure Provider Name and Address Organization Details Last Updated DateTime 03/06/2023 172.72 cm 34.8 kg/m2 898668.9 3 g 120 mm[Hg] 81 mm[Hg] Omaira Frey [facility] 10:23:26 Social History Question Answer Notes LastModified by Organizat ion Details LastModified Time Tobacco Smoking Status Never Smoker Omaira Frey [facility], [facility] 03/06/2023 10:23:39 Do You Have An Advance Directive? No [email or web address] Information n ot available 02/16/2021 If You Are , What Was Your Level Of Alcohol Consumption Prior To ? Occasional Information not available 03/06/2023 How Many Years Have You Consumed Alcohol? 6 Information not available 03/06/2023 Are You Blind Or Do You Have Difficulty Seeing? No [email or web address] Information n ot available 02/16/2021 What Is Your Level Of Caffeine Consumption? Heavy Information not available 03/06/2023 How Much Tobacco Do You Chew? None [email or web address] Information not available 02/16/2021 In The 14 Days Before Symptom Onset, Have You Had Close Contact With A Laboratory-confirm ed COVID-19 While That Case Was Ill? No [email or web address] Information n ot available 02/16/2021 In The 14 Days Before Symptom Onset, Have You Had Close Contact With A Person Who Is Under Investigation For COVID-19 While That Person Was Ill? No [email or web address] Information not available 02/16/2021 Have You Been To An Area Known To Be High Risk For COVID-19? No [email or web address] Information not available 02/16/2021 Are You Deaf Or Do You Have Serious Difficulty Hearing? No [email or web address] Information not available 02/16/2021 What Type Of Diet Are You Following? REGULAR [email or web address] Information n ot available 02/16/2021 What Is The Highest Grade Or Level Of School You Have Completed Or The Highest Degree You Have Received? [id number] Information not available 02/16/2021 Are There Any Guns Present In Your Home? Yes [email or web address] Information not available 02/16/2021 Have You Ever Been Counseled For Unhealthy Alcohol Use? No Information not available 03/06/2023 Do You Use Protection During Sex? No [email or web address] Information not available 02/16/2021 Do You Use Your Seat Belt Or Car Seat Routinely? Yes [email or web address] Information not available 02/16/2021 Do You Have Smoke And Carbon Monoxide Detectors In Your Home? Yes [email or web address] Information not available 02/16/2021 How Much Tobacco Do You Smoke? No [email or web address] Information not available 02/16/2021 Do You Use Sunscreen Routinely? Yes [email or web address] Information not available 02/16/2021 Has Tobacco Cessation Counseling Been Provided? No Information not available 03/06/2023 Have You Used IV Drugs? No [email or web address] Information not available 02/16/2021 Do You Have Difficulty Walking Or Climbing Stairs? No Information not available 03/06/2023 Sex: Unknown Functional Status Question Answer Note LastModified by Organizat ion Details LastModified Time Do you use any illicit or recreational drugs? No [email or web address] Information not available 02/16/2021 Do you or have you ever used any other forms of tobacco or nicotine? No Information not available 03/06/2023 What is your level of alcohol consumption? Occasional [email or web address] Information not available 02/03/2020 Are you able to walk? YESWOREST [email or web address] Information not available 02/16/2021 Are you able to care for yourself? 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 No Information not available 03/06/2023 What is your exercise level? Moderate [email or web address] Information not available 02/16/2021 Mental Status Question Answer Note LastModified by Organization D etails LastModified Time Do you feel stressed (tense, restless, nervous, or anxious, or unable to sleep at night)? [id number] [email or web address] Information not available 02/16/2021 Family History Relationship Description Onset Age of this Age Resolved Age Notes LastModified by Organization Details LastModified Time Maternal Grandmother Malignant tumor of breast [email or web address] Not available 2023 09:50:36 Maternal Grandmother Malignant tumor of breast Not available 2023 09:50:36 Mother Malignant tumor of breast [email or web address] Not available 2023 09:50:36 Mother Malignant tumor of breast [email or web address] Not available 2023 09:50:36 Notes:Cancer risk form compl ete 02/14/2021 Medical History Condition Response Allergies (Food, seasonal, environmental ) N Other N Blood Transfusion N Drug/Latex Allergies/Reactions N Breast Cancer N Dermatologic Disorders N Lung Disease N Defects or Inherited Disease N Breast Problem N Gestational Diabetes N Hematologic disorders N Anesthesia Complications N History of STI N Deep Vein Thrombosis N Polycystic ovary syndrome N Anxiety Disorder Y Autoimmune disease N Arthritis N Infertility N Polyps N Acid Reflux (GERD) N History of abnormal pap N Cancer N Stroke N Varicosities N Neurologic/Epilepsy N Endometriosis N High Cholesterol N Headaches N Fibromyalgia N Kidney Disease N Heart Problems N Kidney or Bladder Problems N Thyroid Problems N GI Problems N Eating Disorder N Anemia N Art (IVF or FET) N Psychiatric Illness N Ovarian Cancer N Diabetes N Pulmonary (TB, Asthma) N Hepatitis/Liver Disease N No Past Medical History N Eczema N Urinary Tract Infection N Abuse/Domestic Violence N Asthma N Trauma/Violence N Depression/ depression N Heart Disease N Pre-Eclampsia N Hypertension N Osteoporosis N Thrombophilias N Gynecological History Statement/Question Response Abnormal Pap N Date of Last Mammogram Flow Moderate Date of LMP 04/28/2022 On BCP's at Conception? N N Was last menstrual period normal Y STIs/STDs N HPV Vaccine Y 13 Current Control Method Are cycles usually normal Y Sexually Active? Y Menses Monthly Y Date of DEXA bone scan Age of first menstrual cycle 13 Date of Last Pap Smear 06/16/2022 Sexual Problems? N Desired Control Method None LMP Approximate N Obstetrics History GPAL:G 1 P 1 0 0 1 Type Value Full Term 1 Living 1 Total 1 Past Encounters Encounter ID Performer Location Encounter Start Date Encounter Closed Date Diagnosis/Indication Diagnosis SNOMED-CT Code Diagnosis ICD10 Code Diagnosis Note [id number] RHEA Pacheco [address] [address] 02/03/2020 09:43:25 02/03/2020 10:22:09 Gynecologic examination [id number] Z01.419 Take Calcium with Vitamin D 1200mg daily if not receiving in daily diet. It is strongly advised to have an annual flu shot and up can obtain at most pharmacies . If you have not had a TDap shot in the last 10 years you should obtain one as well. Discussed with patient & provided with informatio n regarding Gardisil vaccine to prevent the 4 strains for HPV that cause cervical cancer if under age 26. Encourage safe sexual practices, to use condoms and limit partners if not already in a monogamous relationsh ip. Do monthly self breast exams. Have mammogram yearly or every other year depending on family history. BRCA testing is now available for patients with strong genetic history of female cancer. If interested contact the office. Engage in daily exercise of low impact aerobic exercise 45-60 minutes 4-5 times weekly. Avoid tobacco and illicit drugs as well as using moderation with alcohol intake less than 1-2 8 oz beverages daily. This lifestyle behavior pattern will lead to less health conditions and longer life span. If BMI greater than 25 weight watchers or dietary consult advised. Patient received above instructio ns, and questions have been answered. If you have any questions please call or respond to this email. Patient was made aware of the patient portal and may obtain a paper copy of today's plan if desired. [facility] ion care management [id number] Z30.9 Pt happy with nuvaring. She has recently been given the generic and is not thrilled with it. Feels that the ring itself is harder and a little uncomforta ble. I would recommend using brand only for this prescripti on d/t the discomfort . [id number] [facility] [address] [address] 02/16/2021 09:22:28 02/16/2021 10:10:50 Gynecologic examination [id number] Z01.419 Take Calcium with Vitamin D 1200mg daily if not receiving in daily diet. It is strongly advised to have an annual flu shot and up can obtain at most pharmacies . If you have not had a TDap shot in the last 10 years you should obtain one as well. Has had covid vaccine. Discussed with patient & provided with informatio n regarding Gardisil vaccine to prevent the 4 strains for HPV that cause cervical cancer if under age 26. Encourage safe sexual practices, to use condoms and limit partners if not already in a monogamous relationsh ip. Do monthly self breast exams. Have mammogram yearly or every other year depending on family history. BRCA testing is now available for patients with strong genetic history of female cancer. If interested contact the office. Engage in daily exercise of low impact aerobic exercise 45-60 minutes 4-5 times weekly. Avoid tobacco and illicit drugs as well as using moderation with alcohol intake less than 1-2 8 oz beverages daily. This lifestyle behavior pattern will lead to less health conditions and longer life span. If BMI greater than 25 weight watchers or dietary consult advised.Ge tting next month. Considerin g . Encouraged to start vitamins with dha and folic acid. Patient received above instructio ns, and questions have been answered. If you have any questions please call or respond to this email. Patient was made aware of the patient portal and may obtain a paper copy of today's plan if desired. [id number] Neela Alonzo [facility] [address] [place] [address] 04/01/2021 09:22:38 04/01/2021 10:25:08 Vaginal Papanicolaou smear unsatisfactory for evaluation [id number] 67140 R87.625 Repeat pap collected. Await results. [id number] Jenna Pacheco [facility] [address] [place] [address] 12/15/2021 16:47:20 12/15/2021 18:33:00 Trying to conceive [id number] Z31.9 [id number] Dean Marie MD [place] [address] [place] [address] 02/22/2022 10:37:47 02/22/2022 10:38:51 [id number] Dean Marie MD [place] [address] [place] [address] 03/02/2022 16:11:17 03/02/2022 16:38:26 Unexplained infertility [id number] N97.9 this patient is a 26-year-ol d female who presents for follow-up on infertilit y. She underwent a hysterosal pingogram. It was normal. She has had a normal basic infertilit y workup with the exception of a morphology issue with her 's semen sample. We discussed the treatment for infertilit y going forward. She will see Jenna Escalona gave her descriptio n, general, of the ovulation induction process. She does have regular periods. This will be a induction of super ovulation type cycle. She understand s the risk of twins is 10%. We spent 20 minutes face-to-fa ce. More than 50% was counseling . She will make an appointmen t with Jenna to arrange ovulation induction. [id number] Jenna Pacheco CNM [place] [address],[facility] [address] 04/13/2022 14:41:22 04/13/2022 17:21:23 Female infertility 2028522 N97.9 reviewed COST and Femara side effects risks and benefits including hyperstimu lation, if severe abd pain to ED, limited cycle use,review ing chart, hx of elevated liver enzymes, will call and get copy of most recent or can draw her.will call out letrazole after results and then will plan IUI, pt has handouts, reviewed all steps [id number] RJ Gann [facility] [address],[place] [address] 04/20/2022 14:06:12 04/20/2022 15:43:27 Gynecologic examination 18549629 Z01.419 Take Calcium with Vitamin D 1200mg daily if not receiving in daily diet. It is strongly advised to have an annual flu shot and up can obtain at most pharmacies . If you have not had a TDap shot in the last 10 years you should obtain one as well. Discussed with patient & provided with informatio n regarding Gardisil vaccine to prevent the 4 strains for HPV that cause cervical cancer if under age 26. Encourage safe sexual practices, to use condoms and limit partners if not already in a monogamous relationsh ip. Do monthly self breast exams. Have mammogram yearly or every other year depending on family history. BRCA testing is now available for patients with strong genetic history of female cancer. If interested contact the office. Engage in daily exercise of low impact aerobic exercise 45-60 minutes 4-5 times weekly. Avoid tobacco and illicit drugs as well as using moderation with alcohol intake less than 1-2 8 oz beverages daily. This lifestyle behavior pattern will lead to less health conditions and longer life span. If BMI greater than 25 weight watchers or dietary consult advised. Patient received above instructio ns, and questions have been answered. If you have any questions please call or respond to this email. Patient was made aware of the patient portal and may obtain a paper copy of today's plan if desired. [facility], following with SP at [facility] for infertilit y care. Having repeat CMP collected today - once done she will f/u with SP for further infertilit y management .Taking daily PNVNo hx of abnormal papsLast pap 04/01/2021 - normalNext pap due 03/2024Fam ana hx of mother with BC at age 45, MGM with BC in her 40s. Unsure if mother had negative genetic testing or not, she thinks she may have had negative testing. She will discuss this with her mother, handout given on invitae genetic testing. She will consider having this done.Next WWE due in 1 year Family his tory of breast cancer [id number] Z80.3 [id number] Dean Marie MD [place] [address] [address] 06/16/2022 11:01:50 06/16/2022 12:17:40 [id number] [facility] [address] [address] 06/16/2022 11:02:14 06/17/2022 15:50:06 Gynecologic examination 98173077 Z01.419 Z11.51 test positive 796337825 Z32.01 Risk factors addressed: Tobacco Cessation, Safe Sexual Practices, environmen nancy, work hazards, travel restrictio ns, seat belt use.Eat a health well balanced diet, avoid alcohol, tobacco, and street drugs.Enga ge in daily low impact exercise, avoid temperatur e extremes, and cat, rodent, and bird feces.Avoi d travel to areas where zika virus is a concern.Of fered cf/sma/nip t. Handouts given and discussed with patient.Ch ildbirth classes recommende d.New OB sheet given.If previous , counseling .Pt verbalizes that she understand s the importance of above instructio ns.All questions were answered.P atient reminded to have annual well woman examinatio n and address [facility] . Liver enzy mes level above reference range 797466187 R74.8 History of abnormal LFT. Will check today. Amenorrhea 18749619 N91. 2 [id number] Minnie Black MD [place] [address] [address] 07/20/2022 09:29:22 07/20/2022 12:43:11 screening 705379166 Z36.82 [id number] Minnie Black MD [place] [address] [address] 07/20/2022 09:29:48 07/21/2022 15:03:57 Routine care 312814285 Z34.91 Non-alcoho lic fatty liver 807533442 K76.0 [id number] Neela Alonzo [facility] [address] [address] 08/18/2022 12:01:49 08/18/2022 12:39:34 Routine care 220262630 Z34.92 [id number] Minnie Black MD [place] [address] [address] 09/16/2022 10:58:02 09/16/2022 12:10:31 screening for malformation 300681736 Z36.3 [id number] Minnie Black MD [place] [address] [place] [address] 09/16/2022 12:07:18 09/22/2022 15:41:17 Routine care 008091681 Z34.91 [id number] Minnie Black MD [place] [address] [place] [address] 10/14/2022 10:15:27 10/14/2022 11:49:42 screening 985498903 Z36.2 [id number] MD Arias Brown [address] [address] 10/14/2022 10:15:48 10/14/2022 14:35:18 cleft lip 7341437767 9104 O35.8XX9 Gastroesop hageal reflux disease without esophagitis 321963523 K21.9 Routine an tenatal care 563945885 Z34.91 [id number] MD Arias Brown [address] [address] 11/14/2022 15:16:34 11/17/2022 12:53:24 Routine care 340826449 Z34.91 cleft lip 00854438 11 9104 O35.8XX9 [id number] MD Arias Brown [address] [address] 12/02/2022 15:08:18 12/02/2022 17:25:21 Routine care 101833735 Z34.91 cleft lip 49332241 11 9104 O35.8XX9 [id number] Minnie Black MD [place] [address] [address] 12/16/2022 15:02:36 12/16/2022 17:20:33 Routine care 518894905 Z34.91 cleft lip 39073662 11 9104 O35.8XX9 [id number] MD Arias Brown [address] [address] 12/22/2022 13:18:58 12/22/2022 14:11:16 Reduced movement 750629018 O36.8199 [id number] MD Arias Brown [address],[place] [address] 12/22/2022 14:15:57 12/22/2022 14:53:42 Reduced movement 305392689 O36.8130 O36.8330 Z3A.34 [id number] MD Arias Brown [address],[place] [address] 12/30/2022 14:04:14 01/09/2023 14:01:20 Routine care 432470107 Z34.91 cleft lip 96764642 11 9104 O35.8XX9 [id number] Minnie Black MD [place] [address],[place] [address] 01/04/2023 13:58:06 01/04/2023 14:29:00 Routine care 819232867 Z34.91 [id number] Minnie Black MD [place] [address],[place] [address] 01/12/2023 14:08:46 01/13/2023 15:46:12 Acute urinary tract infection 577658436 N39.0 Pt here for urine check as pt is c/o UTI sxs - urinary frequency with little output. Pt in office for urine dip and urine shows +2 leuks. Okay per SP to treat with Keflex 500mg BID x 7 days. Rx sent and UC sent. Pt informed and understood . FREDERICK gutierrez [id number] Minnie Black MD [place] [address] [address] 01/13/2023 13:54:39 01/13/2023 14:44:50 Maternal obesity complicating , childbirth and the puerperium, antepartum 9658437681 07 Z3A.37 [id number] Minnie Black MD [place] [address],[place] [address] 01/13/2023 14:31:57 01/16/2023 15:22:53 Routine care 128777049 Z34.91 cleft lip 64509909 11 9104 O35.8XX9 [id number] Minnie Black MD [place] [address] [address] 01/20/2023 14:17:13 01/23/2023 11:38:09 Routine care 432820682 Z34.91 Excessive weight gain during 1775453760 O26.03 [id number] Dean Marie MD [place] [address],[facility] [address] 01/31/2023 10:27:57 02/01/2023 10:47:38 -induced hypertension 50128323 O13.9 27-year-ol d 1 para 1 at 1 week presents for blood pressure check. Her blood pressures are mildly elevated. We agreed not to treat. She will get a blood pressure cuff and check her pressures at home. She was given precaution s, she denies any symptoms of preeclamps ia, she was given numbers to consider when checking her blood pressures. She will follow up and 1 week [id number] JACE YEBOAH MD [place] [address] [address] 03/06/2023 10:11:27 03/06/2023 12:16:48 care 893816459 Z39.2 S/p 6 weeks ago here today for a visit.1. Patient recovering well2. Plans to continue combo feeding3. Not interested in contracept ion at this time. Discussed recommende d interpregn dat interval of 18 months4. Patient instructed to follow up in 1 year for well woman exam unless need arises prior Past pregn dat history of pre-eclampsia [id number] 19909 Z87.59 - normotensi ve today- asymptomat ic- discussed increased risk of preeclamps ia with subsequent pregnancie s- recommend bASA at 12 weeks with next Health Concerns Section Related Observation LastModified by Organization Detai ls LastModified Time None Recorded Concern Status LastModified by Organization Details LastModified Time None Recorded Advance Directives Directive N: Payers Insurance Date Sequence Insurance Name Policy Number Policy Mcgarry Covered Member ID Mcgarry Member ID Guarantor Name 02/10/2023 PAYMENT PLAN Veronique Quinnran 05/02/2024 1 [employer] [place] [id number] Veronique Quinnran [id number] Veronique Rivera 01/27/2021 1 [place] [id number] Nella De Dios [id number] Veronique Rivera 01/09/2023 PAYMENT PLAN Veroniqueniko QuinnRivera 08/15/2022 1 [place] [id number] Veronique De Dios [id number] Veronique Rivera 05/02/2024 1 [place] [id number] Esau Quinnran [id number] Veronique Rivera 05/25/2022 1 [place] [id number] Esau Rivrea [id number] Veronique Rivera 01/09/2023 PAYMENT PLAN Veronique Rivera Notes Date Note Type Note Provider Name and Address Organization Details Recorded Time 01/31/2023 text/html 27-year-old wolfgang beaulieu who is 1 week. She had an atypical preeclampsia. She has some elevated blood pressure today. She is going to get a blood pressure cuff. She is going to monitor blood pressures at home. She will contact us with numbers over 150/100. Dean Marie MD [address], [place], [address], [facility] 01/31/2023 22:48:02 03/06/2023 text/html S/P 01/23/23. was complicated by preeclampsia without severe features. They named him Edward. Complications with delivery: none. Patient denies any specific problems since delivery. Patient overall feeling well. Patient is combo feeding without problems. No bleeding. Bowel and bladder function are normal. Pap due 2025. Denies any signs or symptoms of depression. Is coping with parenting well. Patient has not been sexually active since delivery. Patient is not interested in contraception at this time. Discussed recommended interpregnancy interval of 18 months. JACE YEBOAH MD [address], [place], [address], [facility] 03/06/2023 12:06:48 OBGyn Episode Ob Episode Information Episode Created Date Number of Fetuses Patient Bloodtype Patient rh Status Prepregnancy Weight lbs Domestic Partner Domestic Partner Phone Father Name Pressurization Mechanic Status 07/21/19 23 1 A Negative 231 CLOSED Fetus Data First Name Last Name Admitted to NICU Weight (g) Sex Living Outcome Pediatric Complications Fetus ID Race Codes Race Delivery Type 3430.28 95 M true Full Term nuchalx1, cleft lip 11041 Vaginal Delivery Problems Problem Notes BMI <35HC 92% at 33w at MFM Problem Name Start Date End Date Resolution Snomed Code Not e Non-alcoholic fatty liver 959291286 elevated LFTs f or at least 3 years, MORROW neg, were decreasing with diet and exercise-- baseline CMP, repeat q trimester 08/18/22 LFTs - Normal RhD negative 641182551 cleft lip [id number] right- M at [facility] 12/14 u/s and md visit - No further appointments schd/needed by [facility]! Clem Calculation Initial Clem Date Initial Exam Date Initial Exam Provider Initial Ultrasound Date Last Menstrual Period Date Ultra Sound Weeks Gestation 02/02/2023 07/20/2022 06/16/2022 04/28/2022 6 Eighteen To Twenty Week Clem Update Ultra Sound Date Fundal Height At Umbil Quickening Date Ultra Sound Latest Weeks Gestation Final Clem Confirmed By Final Clem Confirmed Date Final Clem Date Ultra Sound Latest Days Gestation 0 [email or web address] 07/20/2022 02/03/20 23 0 Pre-jerome Flowsheet Flowsheet Date 07/20/2022 Victor Score Blood Edema Fundus Height Fundus Units Glucose Ketones Leukocytes Nitrite Labor Signs Protein Cervic Dilation Cervic Effacement Cervic Station Type Weight in lbs Pre/Post Dialysis Refused BP Diastolic BP Location Tested BP Systolic BP Type Fetus Heart Rate Present Fetus Movement Comments Flowsheet Date 07/20/2022 Victor Score Blood Edema Fundus Height Fundus Units Glucose Ketones Leukocytes Nitrite Labor Signs Protein Cervic Dilation Cervic Effacement Cervic Station neg none none trace Type Weight in lbs Pre/Post Dialysis Refused Weight 228.007462935273 BP Diastolic BP Location Tested BP Systolic BP Type 73 112 Fetus Heart Rate Present A 175 Fetus Movement A No Comments Veronique is a 27yo G1 who prese [facility] for care. This was a spontaneous after over a year of trying, had started an infertility MORROW but no treatment yet. Her history is noncontributory other than a 3+ year history of elevated LFTs. Extensive MORROW was neg and she was told just fatty liver from obesity. Recently enzymes had been improving with diet and exercise. CMP with labs. Otherwise routine care. BMI is not >35. Labs and NIPT today. NOrmal NT today. Flowsheet Date 08/18/2022 Victor Score Blood Edema Fundus Height Fundus Units Glucose Ketones Leukocytes Nitrite Labor Signs Protein Cervic Dilation Cervic Effacement Cervic Station neg none none trace Type Weight in lbs Pre/Post Dialysis Refused Weight 229.688429140626 BP Diastolic BP Location Tested BP Systolic BP Type 78 120 Fetus Heart Rate Present A 151 Fetus Movement A No Comments Doing well. Occasional nause a but much better and tolerable. Having a boy! Will draw baseline cmp today. Flowsheet Date 09/16/2022 Victor Score Blood Edema Fundus Height Fundus Units Glucose Ketones Leukocytes Nitrite Labor Signs Protein Cervic Dilation Cervic Effacement Cervic Station Type Weight in lbs Pre/Post Dialysis Refused BP Diastolic BP Location Tested BP Systolic BP Type Fetus Heart Rate Present Fetus Movement Comments Flowsheet Date 09/16/2022 Victor Score Blood Edema Fundus Height Fundus Units Glucose Ketones Leukocytes Nitrite Labor Signs Protein Cervic Dilation Cervic Effacement Cervic Station neg none trace trace Type Weight in lbs Pre/Post Dialysis Refused Weight 230.318449254571 BP Diastolic BP Location Tested BP Systolic BP Type 82 120 Fetus Heart Rate Present A 160 Fetus Movement A No Comments Doing well. ANatomy today co mplete and wnl except heart, face, fingers suboptimal, complete next visit. Flowsheet Date 10/14/2022 Victor Score Blood Edema Fundus Height Fundus Units Glucose Ketones Leukocytes Nitrite Labor Signs Protein Cervic Dilation Cervic Effacement Cervic Station Type Weight in lbs Pre/Post Dialysis Refused BP Diastolic BP Location Tested BP Systolic BP Type Fetus Heart Rate Present Fetus Movement Comments Flowsheet Date 10/14/2022 Victor Score Blood Edema Fundus Height Fundus Units Glucose Ketones Leukocytes Nitrite Labor Signs Protein Cervic Dilation Cervic Effacement Cervic Station trace Type Weight in lbs Pre/Post Dialysis Refused Weight 236.322281741555 BP Diastolic BP Location Tested BP Systolic BP Type 82 L arm 126 sitting Fetus Heart Rate Present A 165 Fetus Movement A Yes Comments Doing fine except zantac BID not controlling GERD< will send protonix. GCT next visit with CMP to recheck LFTs. US today anatomy now complete. baby has right cleft lip. Discussed findings, support given, questions answered. MFM referral to [facility] so they can be referred to pediatric surgeon as well. Flowsheet Date 11/14/2022 Victor Score Blood Edema Fundus Height Fundus Units Glucose Ketones Leukocytes Nitrite Labor Signs Protein Cervic Dilation Cervic Effacement Cervic Station neg none 33 none neg Type Weight in lbs Pre/Post Dialysis Refused Weight 241.44553022919 BP Diastolic BP Location Tested BP Systolic BP Type 80 121 Fetus Heart Rate Present A 160 Fetus Movement A Yes Comments Doing well. Saw MFM and surg artis, feels better about cleft lip diagnosis. Back to [facility] 12/14. GERD much better. DIscussed and encouraged Tdap. GCT and CMP today. Flowsheet Date 12/02/2022 Victor Score Blood Edema Fundus Height Fundus Units Glucose Ketones Leukocytes Nitrite Labor Signs Protein Cervic Dilation Cervic Effacement Cervic Station neg none 32 none trace Type Weight in lbs Pre/Post Dialysis Refused Weight 242.231071734018 BP Diastolic BP Location Tested BP Systolic BP Type 84 124 Fetus Heart Rate Present A 140 Fetus Movement A Yes Comments Doing fine. Doing Tdap soon. GCT wnl. Rhogam and CMP not done yet- doing this week. Discussed checking with nurse recruiter re recs for cleft babies, but should be ok to deliver at . Flowsheet Date 12/16/2022 Victor Score Blood Edema Fundus Height Fundus Units Glucose Ketones Leukocytes Nitrite Labor Signs Protein Cervic Dilation Cervic Effacement Cervic Station neg none 33 2+ 2+ Type Weight in lbs Pre/Post Dialysis Refused Weight 242.707536811681 BP Diastolic BP Location Tested BP Systolic BP Type 81 122 Fetus Heart Rate Present A 155 Fetus Movement A Yes Comments Doing well. Rhogam done. Doi ng Tdap this weekend. Was at [facility] 2 days ago, normal growth (62%), but HC 92%, will do one more growth at 37w. Flowsheet Date 12/22/2022 Victor Score Blood Edema Fundus Height Fundus Units Glucose Ketones Leukocytes Nitrite Labor Signs Protein Cervic Dilation Cervic Effacement Cervic Station Type Weight in lbs Pre/Post Dialysis Refused BP Diastolic BP Location Tested BP Systolic BP Type Fetus Heart Rate Present Fetus Movement Comments Flowsheet Date 12/22/2022 Victor Score Blood Edema Fundus Height Fundus Units Glucose Ketones Leukocytes Nitrite Labor Signs Protein Cervic Dilation Cervic Effacement Cervic Station Type Weight in lbs Pre/Post Dialysis Refused BP Diastolic BP Location Tested BP Systolic BP Type Fetus Heart Rate Present Fetus Movement Comments Flowsheet Date 12/30/2022 Victor Score Blood Edema Fundus Height Fundus Units Glucose Ketones Leukocytes Nitrite Labor Signs Protein Cervic Dilation Cervic Effacement Cervic Station neg none 37 none trace Type Weight in lbs Pre/Post Dialysis Refused Weight 247.237892103800 BP Diastolic BP Location Tested BP Systolic BP Type 82 124 Fetus Heart Rate Present A 135 Fetus Movement A Yes Comments Doing fine. GBS at 36w, disc ussed. Will do flu and RSV vaccines. NO concerns. Flowsheet Date 01/04/2023 Victor Score Blood Edema Fundus Height Fundus Units Glucose Ketones Leukocytes Nitrite Labor Signs Protein Cervic Dilation Cervic Effacement Cervic Station neg none 36 none trace Type Weight in lbs Pre/Post Dialysis Refused Weight 249.102816717359 BP Diastolic BP Location Tested BP Systolic BP Type 85 125 Fetus Heart Rate Present A 145 Fetus Movement A Yes Comments Doing well. Some cramping an d pressure. Great FM. GBS next week. Flowsheet Date 01/12/2023 Victor Score Blood Edema Fundus Height Fundus Units Glucose Ketones Leukocytes Nitrite Labor Signs Protein Cervic Dilation Cervic Effacement Cervic Station Type Weight in lbs Pre/Post Dialysis Refused BP Diastolic BP Location Tested BP Systolic BP Type Fetus Heart Rate Present Fetus Movement Comments Flowsheet Date 01/13/2023 Victor Score Blood Edema Fundus Height Fundus Units Glucose Ketones Leukocytes Nitrite Labor Signs Protein Cervic Dilation Cervic Effacement Cervic Station Type Weight in lbs Pre/Post Dialysis Refused BP Diastolic BP Location Tested BP Systolic BP Type Fetus Heart Rate Present Fetus Movement Comments Flowsheet Date 01/13/2023 Victor Score Blood Edema Fundus Height Fundus Units Glucose Ketones Leukocytes Nitrite Labor Signs Protein Cervic Dilation Cervic Effacement Cervic Station neg none none trace 2cm 80% -1 Type Weight in lbs Pre/Post Dialysis Refused Weight 245.326487744837 BP Diastolic BP Location Tested BP Systolic BP Type 88 127 Fetus Heart Rate Present A 160 Fetus Movement A Yes Comments Doing well. US today 59% and vertex. 2.5cm. GBS done. Labor precautions given. Flowsheet Date 01/20/2023 Victor Score Blood Edema Fundus Height Fundus Units Glucose Ketones Leukocytes Nitrite Labor Signs Protein Cervic Dilation Cervic Effacement Cervic Station neg 1+ 40 none trace 2cm 80% -1 Type Weight in lbs Pre/Post Dialysis Refused Weight 252.824251303011 BP Diastolic BP Location Tested BP Systolic BP Type 89 132 Fetus Heart Rate Present A 150 Fetus Movement A Yes Comments DOing well, feels good. 7# w eight gain in 1 week, does not feel that swollen. Denies ALANIZ/BV/EP. BP slightly above her baseline. Will do PIH labs. Discussed delivery if has PreE, possible 24 hour urine if PC ratio borderline. PreE precautions given. Flowsheet Date 01/31/2023 Victor Score Blood Edema Fundus Height Fundus Units Glucose Ketones Leukocytes Nitrite Labor Signs Protein Cervic Dilation Cervic Effacement Cervic Station Type Weight in lbs Pre/Post Dialysis Refused BP Diastolic BP Location Tested BP Systolic BP Type Fetus Heart Rate Present Fetus Movement Comments Menstrual History Last Menstrual Date Menses Monthly On Bcp Conception Prior Menses Frequency Hcg Plus Date Menarche Onset Age 1204/28/2022 Genetic Screening And Infection History Question Response Note Mental Retardation/Autism false Patient's Age Will Be 35 Years Or Older At Estim ated Date of Delivery false Thalassemia (Fijian, Thai, Mediterranean, Or Background): MCV < 80 false Neural Tube Defect (Meningomyelocele, Spina Bifi da, Or Anencephaly) false Congenital Heart Defect false Down Syndrome false Noel-Sachs (eg, Mormon, Cajun, Korean-Swedish) f alse Svitlana Disease false Sickle Cell Disease Or Trait () false Hemophilia Or Other Blood Disorders false Muscular Dystrophy false Cystic Fibrosis false Colusa's Chorea false Intellectual Disability/Autism false If Yes, Was Person Tested For Fragile X? false Other Inherited Genetic Or Chromosomal Disorder false Maternal Metabolic Disorder (eg, Type 1 Diabetes , PKU) false Patient Or Baby's Father Had A Child With Defects Not Listed Above false Recurrent Loss, Or A Stillbirth false Medications (including Suppl ements, Vitamins, Herbs, OTC Drugs), Illicit/Recreational Drugs, Alcohol false If Yes, Agent(s) And Strength/Dosage false Any Other Genetic History false Live With Someone With TB Or Exposed To TB false Patient Or Partner Has History Of Genital Herpes false Rash Or Viral Illness Since Last Menstrual Perio d false History Of STD, Gonorrhea, Chlamydia, HPV, Syphi lis false Other Infection History false History of HIV false History of Hepatitis false Prior GBS-infected child false Hemoglobinopathy Or Carrier false Other Structural Defect false Recent Travel History Outside of Country false Delivery Information Delivery Date Delivery Type Labor Anesthesia Weeks Gestation Incision Type Labor Labor Length Hrs Delivered By Post Complications Tubal Sterilization Discharge Date Comments 3 Induce d Regional-Ep idural 38.4 false Minnie Black MD pre-e, cleft lip, Non-alcoh olic fatty liver, RhD negative Discharge Information Feeding Method Contraceptive Method Maternal HG B and HCT Levels
--- OUTSIDE RECORDS SUMMARY | 2024-10-31 07:14 | XMS_ITS | Encounter Summary ---
Author Organization [facility] Address [address] [place] [address] Care Team Providers Care Check Grader Name Role Phone Vita Leon [facility] Primary Care Provider + Encounter Details Date Type Department Care Team (Late st Contact Info) Description 12/29/2017 Abstract [facility] Arely Naqvi PA-C [id number] [address] Social History Tobacco Use Types Packs/Day Years Used Date Smoking Tobacco: Never Assessed Comments Unknown Sex and Gender Information Value Date Recorded Sex Assigned at Female 06/05/2024 5:49 PM JOURNEYMAN PIPEFITTER Legal Sex Female 11:19 PM CDT Gender Identity Female 11/05/2021 9:56 AM CDT Sexual Orientation Straight 11/05/2021 9: 56 AM CDT documented as of this encounter Miscellaneous Notes * Letter - Arely Naqvi PA-C - 12/29/2017 12:00 AM CDT 03 January 2018 Veronique De Dios [address] [place] [address] Dear Veronique De Dios, Thank you for the trust you have placed in [facility] as your health care team. You are a valued patient at our office and we hope you are well. We are concerned about your health and noticed that you did not keep your last scheduled appointment on 12/29/2017. If your appointment has not been rescheduled, please call the office at to reschedule your appointment as soon as possible. As you are aware, we are dedicated to caring for the whole patient, not just treating an illness. When we schedule appointments, we set aside time and professional resources to meet the individual needs of our patients, including time for one-on-one consultation. When a patient does not come to an appointment or cancels the appointment without sufficient notice, our health care team is not able to take time needed to care for another patient. Cancelling within at least 24 hours of your appointment allows us to prepare our schedule for other patients who need timely care. Please be aware, per our organization's no-show policy, if at least 24 hours' notice is not given two times in one year, the practice will impose a $25 no- show fee. We understand there are occasions when a patient must miss an appointment due to unforeseen circumstances. In this event, please call our office and cancel your appointment as soon as you are able. This allows our staff to schedule another patient in need of care. We are committed to providing you the best care possible. We hope to hear from you soon. Sincerely, [facility] cc: Patient Medical Record NEYMAN PIPEFITTER documented in this encounter Plan of Treatment Not on file documented as of this encounter Visit Diagnoses Not on filedocumented in this encounter Additional Health Concerns Infection Onset Date Last Indicated Resolved Time COVID-19 Rule Out 06/23/2023 06/23/2023 06/23/2023 12:06 PM JOURNEYMAN PIPEFITTER COVID-19 Rule Out 06/05/2024 06/05/2024 06/05/2024 5:38 PM JOURNEYMAN PIPEFITTER documented as of this encounter Care Teams Check Grader Relationship Specialty Start Date End Date Vita Leon, CHIEF DIVERSITY OFFICER- [address], [address] [place] [address] PCP - General NURSE PRACTITIONER 11/13/18 documented as of this encounter
--- OUTSIDE RECORDS SUMMARY | 2024-10-31 07:14 | XMS_ITS | Clinical Summary ---
Author Organization [facility] Address [facility] [place] [address] Care Team Providers Care County Extension Agent Name Role Phone Vita LeonP- Primary Care Provider + Allergies No known active allergies Medications vitamin ( PLUS) 27-1 MG tablet Take 1 tablet by mouth daily. Active tirzepatide (ZEPBOUND) 7.5 MG/0.5ML injectionIndicatio ns:Weight Loss Inject 7.5 mg into the skin once a week. Indication s: Weight Loss 2 mL 2 4 10/11/19 25 Discontinu ed(Alterna te therapy) ondansetron (ZOFRAN-ODT) 4 MG disintegrating tablet Take 1 tablet (4 mg total) by mouth every 8 (eight) hours as needed for Nausea. 20 tablet 5 10/11/19 25 Discontinu ed(Alterna te therapy) predniSONE (DELTASONE) 20 MG tabletIndications: Rash Take 1 tablet (20 mg total) by mouth daily for 5 days. 5 tablet 5 10/16/19 25 Active Problems Problem Noted Date Diagnosed Date At risk for infertility 11/05/2021 Overweight 11/05/2021 Estimated Date of Delivery Comme nts Yes 01/19/2025 Encounters Date Type Department Care Team Description 10/10/2024 12:00 PM CDT Office Visit [address] [address] Vita Leon, EDUCATIONAL AUDIOLOGIST-BC Rash (Rash /On right shoulder/) 10/10/2024 Travel from Last 3 Months Immunizations Immunization Administration Dates Next Due Dtap 10/03/2000, 7,1995,1995 ,1995 HPV4 (Gardasil) 06/21/2010,10/22/2009,08/21/2009 Hepatitis A (Generic) 06/21/2010,08/21/2009 Hepatitis A (Havrix [address]) 06/21/2010, 010 Hepatitis B Pediatric 01/05/1996,1995,05/1994 Hib (PedvaxHIB)3 Dose 07/01/1996,1995,08/1995,1995 MMR 10/03/2000,04/08/1996 Meningococcal (Menactra) 12/02/2011,08/21/2009 Meningococcal Vac A,C,Y,W-135 Sc 12/02/2011,07/31 Opv 10/05/1999,1995,1995 ,1995 Polio Opv (Generic) 10/05/1999,1995,1995,1995 Tdap (Generic) 04/26/2021,08/21/2009 Varicella Vaccine 10/22/2007,07/01/1996 Family History Medical History Relation Comments Breast Cancer Maternal Grandmother diagnosis e stimated at early 50s Cancer Mother breast at age 45 Asthma Neg Hx Diabetes Neg Hx Heart Disease Neg Hx Stroke Neg Hx Thyroid Disease Neg Hx Relation Status Comments Maternal Grandmother Mother Social History Tobacco Use Types Packs/Day Years Used Date Smoking Tobacco: Never Smokeless Tobacco: Never Tobacco Cessation:Counseling Given: No Alcohol Use Standard Drinks/Week Comments Yes 3 (1 standard drink = 0.6 oz pur e alcohol) PHQ-2 Answer Date Recorded Patient Health Questionnaire-2 Score 0 10/10/2024 Estimated Date of Delivery Comme nts Yes 01/19/2025 Sex and Gender Information Value Date Recorded Sex Assigned at Female 06/05/2024 5:49 PM CORNER BLOCK CUTTER Legal Sex Female 11:19 PM CDT Gender Identity Female 11/05/2021 9:56 AM CDT Sexual Orientation Straight 11/05/2021 9: 56 AM CDT Last Filed Vital Signs Vital Sign Reading Time Taken Comments Blood Pressure 112/64 10/10/2024 11:54 AM CDT Pulse 96 10/10/2024 11:54 AM CDT Temperature 36.3 C (97.3 F) 10/10/2024 11:54 AM CDT Respiratory Rate 20 10/10/2024 11:5 4 AM CDT Oxygen Saturation 100% 10/10/2024 11: 54 AM CDT Inhaled Oxygen Concentration - - Weight 104.4 kg (230 lb 3.2 oz) 025 11:54 AM CDT Height 170.2 cm (5' 7) 10/10/2024 11:5 4 AM CDT Body Mass Index 36.05 10/10/2024 11:54 AM CDT Plan of Treatment Health Maintenance Due Date Last Done Comments COVID-19 Vaccine ( season) 2023 04/26/2021, 07/07/2020 Annual Physical 02/05/2025 02/06/2024, 10/27/2020 Cervical Cancer Screening Pap Smear (Age 21 to 29) Every 3 Years 06/16/2025 06/16/2022, 04/01/2021, 04/01/2021 Cervical Cancer Screening 06/16/2025 DTaP, Tdap and Td Vaccines (8 - Td or Tdap) 04/26/2031 04/26/2021, 08/21/2009, 10/03/2000, Additional history exists Hepatitis B Vaccines Completed 01/05/1996, 1995, 1995 HPV Vaccines Completed 06/21/2010, 09/30, 08/21/2009 Meningococcal Vaccine Aged Out 12/02/2011 , 12/02/2011, 08/21/2009, Additional history exists No longer eligible based on patient's age to complete this topic Hepatitis C Completed 11/18/2020 PHQ-2 (Physician [place]) Completed 10/10/2024 Meningococcal B Vaccine Aged Out No l onger eligible based on patient's age to complete this topic Pneumococcal Vaccine: Pediatrics (0 to 5 Years) and At-Risk Patients (6 to 49 Years) Aged Out No longer eligible based on patient's age to complete this topic RSV Immunization or 60+ Years (No Doses Required) Completed RSV Immunizations Under 20 Months Aged Out No longer eligible based on patient's age to complete this topic Procedures Procedure Name Priority Date/Time Associated Diagnosis Comments OUTSIDE CYTOPATH CERV/VAG INTERPRET (PAP) 06/16/2022 HEPATITIS PANEL,ACUTE Routine 11/18/2020 7:54 AM CDT Elevated AST (SGOT) Elevated ALT measurement from Last 3 Months or Most Recently Relevant to Health Maintenance Results * PAP SMEAR WITH HPV (06/16/2022) 06/16/2022 [facility] Scanned SCANNING Final Resu lt * HEPATITIS PANEL,ACUTE (11/18/2020 7:54 AM CDT) HEPATITIS B SURFACE AG NON-REACTI VE NON-REACTI VE 11/18/2020 6:27 PM CDT [facility] HEP B CORE IGM NON-REACTI VE NON-REACTI VE 11/18/2020 6:28 PM CDT [facility] HAV IGM NON-REACTI VE NON-REACTI VE 11/18/2020 6:28 PM CDT [facility] HEPATITIS C AB NON-REACTI VE NON-REACTI VE 11/18/2020 6:28 PM CDT [facility] 11/18/2020 7:54 AM CDT Vita Leon [facility] Final Re sult [facility] [address] [place] [address], [place] [phone] from Last 3 Months or Most Recently Relevant to Health Maintenance Insurance [employer] Care Teams County Extension Agent Relationship Specialty Start Date End Date Vita Leon, EDUCATIONAL AUDIOLOGIST- [address], [address] [place] [address] PCP - General NURSE PRACTITIONER 11/13/18
--- OUTSIDE RECORDS SUMMARY | 2024-10-31 07:14 | XMS_ITS | Clinical Summary ---
Author Organization [facility] Address [address] [place] [address] Care Team Providers Care Adoption Social Worker Name Role Phone Unknown, Notinfile Primary Care Provider Unavail able Allergies No known active allergies Medications nitrofurantoin monohydrate (MACROBID) 100 mg capsule TAKE 1 CAPSULE BY MOUTH TWICE DAILY FOR 7 DAYS 07/25/[address] (PROTONIX) 40 mg EC tablet Take 1 tablet (40 mg total) by mouth daily Active vit 22-ubrq-qhkqm-dh a 27mg iron- 800 mcg-250 mg capsule Take by mouth Active Active Problems Problem Noted Date Diagnosed Date Liver enzyme elevation 10/31/2022 Overview (10/31/2022): Veronique has a history of elevated LFTs that have since normalized with diet and exercise. We discussed that with normal LFTs, we have no specific recommendations for this . Resolved Problems Problem Noted Date Diagnosed Date Resolved Date complicated by cleft lip 10/26/2022 03/27/2023 Overview (12/14/2022): Veronique was noted to have an isolated cleft lip on ultrasound today. Cleft lip and palate affects roughly 1/700 liveborn babies and 80% of those with a cleft lip will also have a cleft palate. We reviewed that the palate will also be examined at time of delivery. We reviewed that cleft lip and palate results from a failed fusion of the medial nasal prominences with each other and with the maxillary prominences during the 6th week of embryogenesis. Cleft lip and palate can be associated with aneuploidy (such as trisomy 13 and 18), single gene deletions (such as 22q11 or DiGeorge syndrome), or genetic mutations (such as Treacher Palmer or Miguel Dev sequence). Ms. Castro had a low risk cffDNA. Cleft lip and palate is also associated with maternal exposure to tobacco smoke, alcohol, and medications such as diazepam, phenytoin, and phenobarbital. Zinc and folate deficiencies have also been linked to cleft lip and palate. Ms. Castro was counseled regarding the option for diagnostic genetic testing in light of the aforementioned genetic associations. We discussed that the finding of cleft lip/palate also may be associated with anomalies of the heart and central nervous system, although none were appreciate on ultrasound today. We reviewed that given this isolated finding, prognosis is predicted to be excellent. We briefly reviewed that most babies with a cleft lip and palate will require staged surgeries (lip repair at 2-3 months and palate repair at 9-12 months). We discussed that an consultation with our multidisciplinary [facility] Pediatric Cleft Lip/Palate team is recommended to review a holistic approach to care. [ ] Amniocentesis: Declines [x] 32 week growth ultrasound and return visit [x] pediatric cleft lip/palate surgeon consultation: Jenna Mondragon ( Care RN) will schedule [x] location of delivery: Per patient, [facility] team comfortable with local delivery Assessment & Plan (12/14/2022 3:08 PM CDT): Ms. Castro completed her pediatric palate consult on 12/07. She declines amniocentesis. We discussed delivery planning; Ms. Castro was able to confirm that the team at [facility] is comfortable with a local delivery. We discussed that we are available and happy to answer any questions that arise, but that she is otherwise able to resume routine care. All questions answered. Rh negative state in antepar og period, second trimester 10/26/2022 03/27/2023 Overview (10/31/2022): We discussed Rhogam with any bleeding in and at 28 weeks, as well as an Rh workup . Assessment & Plan (12/14/2022 3:06 PM CDT): Received w/ primary OB. Supervision of high-risk pre gnancy, second trimester 10/26/2022 03/27/2023 Overview (12/14/2022): [x] Co-management vs. [] Full [facility] Care; [] Red Team [x] Blue Team Referring Provider: Minnie Black [phone] [] or Medicare Insurance [x] Dating Criteria: LMP 04/28/22 with JABARI 02/02/23 [x] Labs: Rh [A-], Ab [negative], Rubella [immune], HIV [non-reactive], HepBSAg [non-reactive], RPR [non-reactive], Hep C [non-reactive], Varicella [not done], GC/CT [negative/negative] [x] Genetic Screening: NIPT low risk, [place] Carrier Screen: negative [x] CBC/Hgb 13.0/37.3/plt 289 [] Early 1hr GTT (if indicated) [x] UCx: 07/20/22: >100,000 CFU/mL Escherichia Coli [x] Pap: 06/16/22: NILM [] LD ASA (if indicated) starting at 12 weeks: [] EPDS [ ]; PNBHS referral (if indicated) 2nd Tri Labs: [x] Anatomy ultrasound: [] CBC/Ferritin/1hr gtt at 24-28wks: [] Flu Shot (Sep-Mar): [] Tdap (27-36wks): [x] Rhogam at 28 wks (if Rh neg): 3rd Tri Labs: [] CBC/HIV/RPR/T&S: [] GBS: [] GC/CT (if indicated): [] testing: Counseling [] MOD: [] Place of delivery: [place] [] Last clinic visit SVE: [] IOL start agent: [] Epidural: [] Consents signed: [] MOC: [] Method of feeding: [] Maintenance Worker House Trailer: [] PP Depression Discussed: Surgical History Surgery Date Site/Laterality Comments WISDOM TOOTH EXTRACTION 05/01/2016 OTHER SURGICAL HISTORY 02/18/2022 Hysterosalpingography Medical History Medical History Date Comments Non-alcoholic fatty liver disease elevated LFTs x 3 years Family History Medical History Relation Name Comments Breast cancer Maternal Grandfather malign ant breast tumor Breast cancer Mother malignant kavya st tumor Relation Name Status Comments Maternal Grandfather Mother Social History Tobacco Use Types Packs/Day Years Used Date Smoking Tobacco: Never Smokeless Tobacco: Never Tobacco Cessation:Counseling Given: Not Answered Comments No Sex and Gender Information Value Date Recorded Sex Assigned at Not on file Legal Sex Female 2:54 PM CDT Gender Identity Not on file Sexual Orientation Not on file Obstetrics History Para Term AB IAB SAB Ectopic Multiple Livin g Live Births 1 Date Outcome GA Total Labor Labor/2nd/3rd Weight Sex Type Anes PTL Julisa A1 A5 Name Clin Last Filed Vital Signs Vital Sign Reading Time Taken Comments Blood Pressure 120/81 12/14/2022 2:51 PM CDT Pulse 105 12/14/2022 2:51 PM CDT Temperature - - Respiratory Rate - - Oxygen Saturation 98% 12/14/2022 2:51 PM CDT Inhaled Oxygen Concentration - - Weight 107.6 kg (237 lb 3.2 oz) 12/14/2022 2:51 PM CDT Height 170.2 cm (5' 7) 12/14/2022 2:51 PM CDT Body Mass Index 37.15 12/14/2022 2:51 PM CDT Plan of Treatment Health Maintenance Due Date Last Done Comments Cervical Cancer Screening 1995 Depression Screening 1995 Regular Well Visit/Exam 18-64 2013 Influenza Vaccine (Season Ended) 2024 DTaP/Tdap/Td Vaccine (8 - Td or Tdap) 04/26/2031 04/26/2021, 08/21/2009, 10/03/2000, Additional history exists Hepatitis B Screening Completed 01/05/1996 , 1995, 1995 Varicella Vaccines Completed 10/22/2007, 07/01/1996 HPV Vaccines Completed 06/21/2010, 09/30, 08/21/2009 Hepatitis C Screening Completed 07/20/2022 Pneumococcal vaccine <65 Aged Out No longer eligible based on patient's age to complete this topic Procedures Procedure Name Priority Date/Time Associated Diagnosis Comments HEPATITIS C ANTIBODY Routine 07/20/2022 from Last 3 Months or Most Recently Relevant to Health Maintenance Results * Hepatitis C antibody (07/20/2022) SCRIBED HCV ab non-reacti ve Blood Minnie Black MD LAB MICROBIOLOGY - GENERAL ORDERABLES Final Result from Last 3 Months or Most Recently Relevant to Health Maintenance Insurance [employer] OOS [employer] Care Teams Adoption Social Worker Relationship Specialty Start Date End Date Unknown, Notinfile PCP - General 10/21/22
--- OUTSIDE RECORDS SUMMARY | 2024-10-31 07:14 | XMS_ITS | Referral Summary ---
Author Organization [facility] Address [address] [place] [address] Care Team Providers Care Medical Van Driver Name Role Phone Unknown, Notinfile Primary Care Provider Unavail able Allergies No known active allergies Medications nitrofurantoin monohydrate (MACROBID) 100 mg capsule TAKE 1 CAPSULE BY MOUTH TWICE DAILY FOR 7 DAYS 07/25/[address] (PROTONIX) 40 mg EC tablet Take 1 tablet (40 mg total) by mouth daily Active vit 83-lydv-cxoic-dh a 27mg iron- 800 mcg-250 mg capsule [...] discussed that an consultation with our multidisciplinary [facility] Pediatric Cleft Lip/Palate team is recommended to review a holistic approach to care. [ ] Amniocentesis: Declines [x] 32 week growth ultrasound and return visit [x] pediatric cleft lip/palate surgeon consultation: Jenna Mondragon ( Care RN) will schedule [x] location of delivery: Per patient, [facility] team comfortable with local delivery Assessment & Plan (12/14/2022 3:08 PM CDT): Ms. Castro completed her pediatric palate consult on 12/07. She declines amniocentesis. We discussed delivery planning; Ms. Castro was able to confirm that the team at [facility] is comfortable with a local delivery. We [...] Overview (12/14/2022): [x] Co-management vs. [] Full [facility] Care; [] Red Team [x] Blue Team Referring Provider: Minnie Black [phone] [] or Medicare Insurance [x] Dating Criteria: LMP 04/28/22 with JABARI 02/02/23 [x] Labs: Rh [A-], Ab [negative], Rubella [immune], HIV [non-reactive], HepBSAg [non-reactive], RPR [non-reactive], Hep C [non-reactive], Varicella [not done], GC/CT [negative/negative] [x] Genetic Screening: NIPT low risk, [place] Carrier Screen: negative [x] CBC/Hgb 13.0/37.3/plt 289 [...] [] MOC: [] Method of feeding: [] Internal Revenue Service Agent: [] PP Depression Discussed: Social History Tobacco Use Types Packs/Day Years Used Date Smoking Tobacco: Never Smokeless Tobacco: Never Tobacco Cessation:Counseling Given: Not Answered Comments No Sex and Gender Information Value Date Recorded Sex Assigned at Not on file Legal Sex Female 2:54 PM CDT Gender Identity Not on file Sexual Orientation Not on file Last Filed Vital Signs Vital Sign Reading [...] 12/14/2022 2:51 PM CDT Plan of Treatment Not on file Procedures Procedure Name Priority Date/Time Associated Diagnosis Comments HEPATITIS C ANTIBODY Routine 07/20/2022 from Last 3 Months or Most Recently Relevant to Health Maintenance Results * Hepatitis C antibody (07/20/2022) SCRIBED HCV ab non-reacti ve Blood Minnie Black MD LAB MICROBIOLOGY - GENERAL ORDERABLES Final Result from Last 3 Months or Most Recently Relevant to Health Maintenance Insurance [employer] OOS Care Teams Medical Van Driver Relationship Specialty Start Date End Date Unknown, Notinfile PCP - General 10/21/22
--- OUTSIDE RECORDS SUMMARY | 2024-10-31 07:14 | XMS_ITS | Encounter Summary ---
Author Organization [facility] Address [address] [place] [id number] Care Team Providers Care Roller Coaster Operator Name Role Phone Vita Leon [facility] Primary Care Provider + Encounter Details Date Type Department Care Team (Late st Contact Info) Description 04/28/2022 [employer] Message [facility] [address] [place] [phone] [facility] [address] [facility], [address] [place] [address] Insulin Results Social History Tobacco Use Types Packs/Day Years Used Date Smoking Tobacco: Never Smokeless Tobacco: Never Alcohol Use Standard Drinks/Week Comments Yes 3 (1 standard drink = 0.6 oz pur e alcohol) PHQ-2 Answer Date Recorded Patient Health Questionnaire-2 Score 0 04/28/2022 Comments No Sex and Gender Information Value Date Recorded Sex Assigned at Female 06/05/2024 5:49 PM BOILERMAKER Legal Sex Female 11:19 PM CDT Gender Identity Female 11/05/2021 9:56 AM CDT Sexual Orientation Straight 11/05/2021 9: 56 AM CDT COVID-19 Exposure Response Date Recorded In the last 10 days, have yo u been in contact with someone who was confirmed or suspected to have Coronavirus/COVID-19? No / Unsure 04/28/2022 10:30 AM BOILERMAKER documented as of this encounter Functional Status * Over the past 2 weeks, how often have you been bothered by any of the following problems? Question Answer Date of Assessment Author Status Little interest or pleasure in doing things Not at all 04/28/2022 11:01 AM BOILERMAKER Starla Morgan Active Feeling down, depressed, or hopeless Not at all 04/28/2022 11:01 AM Starla Bravo Active Patient Health Questionnaire-2 Score 0 04/28/2022 11:01 AM Starla Bravo Active documented as of this encounter Plan of Treatment Not on file documented as of this encounter Visit Diagnoses Not on filedocumented in this encounter Additional Health Concerns Infection Onset Date Last Indicated Resolved Time COVID-19 Rule Out 06/23/2023 06/23/2023 06/23/2023 12:06 PM BOILERMAKER COVID-19 Rule Out 06/05/2024 06/05/2024 06/05/2024 5:38 PM BOILERMAKER documented as of this encounter Care Teams Roller Coaster Operator Relationship Specialty Start Date End Date Vita Leon, ELECTRICAL LOGGER-BC [address] [facility], [address] [place] [address] PCP - General NURSE PRACTITIONER 11/13/18 documented as of this encounter
[2024-10-31 09:29] LABS: Glucose 1 Hour 149 mg/dL
[2024-10-31 09:59] LABS: Glucose 2 Hour 152 mg/dL
[2024-10-31 11:38] LABS: Glucose 3 Hour 53 mg/dL
== END 2024-10-31 07:08 | disposition home or self-care (01) ==
LOC: ANHLAB 07:12
PROVIDERS: Visit Provider Obstetrics & Gynecology
DX: Z34.83 Encounter for supervision of other normal pregnancy, third trimester (principal)
CPT/HCPCS: 36415; 82951; 82952

== ENCOUNTER 2024-11-22 15:33 | Outpatient (CLI) | payer OTHER, SELFPAY ==
--- NOTE | ~2024-11-22 | US_ITS ---
EXAMINATION: US OB follow up DATE: 11/22/2024 15:57 INDICATION: Assess growth and presentation during third trimester of TECHNIQUE: Real-time ultrasound of the pelvis was performed. The interpreting radiologist was not pre sent for the study. COMPARISON: None. FINDINGS: There is a single living fetus in vertex presentation. The placenta is anterior fundal and not low-l kaylee. heart rate is 130 beats per minute (bpm). The amniotic fluid index is 11.7 cm, which is normal (5th%-95%: 8.8-33.8 cm at 31 weeks estimated gestational age). The following biometric data were obtained: BPD: 8.3 cm -> 33 weeks 3 days Head circumference: 30.0 cm -> 33 weeks 2 days Abdominal circumference: 27.7 cm -> 31 weeks 5 days Femur length: 6.2 cm -> 32 weeks 0 days These measurements are concordant. Head circumference to abdominal circumference ratio: 1.08 (normal range 0.96-1.12). Estimated weight: 1908 g (+/-) 286 g or 4 lbs. 3 oz. (+/-) 10 oz. IMPRESSION: 1. Single living fetus in vertex presentation with heart rate of 130 bpm. 2. Gestational age by ultrasound of 32 weeks 4 day(s) +/- 2 week(s) 2 day(s) with ultrasound estimate d date of delivery (JABARI) of 01/13/2025. Estimated weight is 52nd percentile by Hadlock criteria when 01/19/2025 is used as the JABARI. Please correlate with clinical information or earlier ultrasounds for most accurate JABARI. 3. Normal amniotic fluid index of 11.7 cm. Reviewed, dictated and finalized at location A. IMPRESSION: 1. Single living fetus in vertex presentation with heart rate of 130 bpm. 2. Gestational age by ultrasound of 32 weeks 4 day(s) +/- 2 week(s) 2 day(s) wi th ultrasound estimated date of delivery (JABARI) of 01/13/2025. Estimated we ight is 52nd percentile by Hadlock criteria when 01/19/2025 is used as the JABARI. Please correlate with clinical information or earlier ultrasounds for most accu rate JABARI. 3. Normal amniotic fluid index of 11.7 cm.
== END 2024-11-22 15:34 | disposition home or self-care (01) ==
LOC: MICIMG 15:33
PROVIDERS: PCP Obstetrics & Gynecology; Visit Provider Obstetrics & Gynecology
DX: Z34.90 Encounter for supervision of normal pregnancy, unspecified, unspecified trimester (principal)
CPT/HCPCS: 76816

== ENCOUNTER 2025-01-06 00:23 | Outpatient (CLI) | payer OTHER, SELFPAY ==
--- OUTSIDE RECORDS SUMMARY | 2025-01-06 01:03 | XMS_ITS | Clinical Summary ---
Author Organization [facility] Address [address] [place] [address] Care Team Providers Care Motorcycle Fabricator Name Role Phone Unknown, Notinfile Primary Care Provider Unavail able Allergies No known active allergies Medications nitrofurantoin monohydrate (MACROBID) 100 mg capsule TAKE 1 CAPSULE BY MOUTH TWICE DAILY FOR 7 DAYS 07/25/[address] (PROTONIX) 40 mg EC tablet Take 1 tablet (40 mg total) by mouth daily Active vit 27-xpdf-alltw-dh a 27mg iron- 800 mcg-250 mg capsule [...] discussed that an consultation with our multidisciplinary [facility] Pediatric Cleft Lip/Palate team is recommended to review a holistic approach to care. [ ] Amniocentesis: Declines [x] 32 week growth ultrasound and return visit [x] pediatric cleft lip/palate surgeon consultation: Jenna Mondragon ( Care RN) will schedule [x] location of delivery: Per patient, [facility] team comfortable with local delivery Assessment & Plan (12/14/2022 3:08 PM CDT): Ms. Castro completed her pediatric palate consult on 12/07. She declines amniocentesis. We discussed delivery planning; Ms. Castro was able to confirm that the team at [facility] is comfortable with a local delivery. We [...] Overview (12/14/2022): [x] Co-management vs. [] Full [facility] Care; [] Red Team [x] Blue Team Referring Provider: Minnie Black [phone] [] or Medicare Insurance [x] Dating Criteria: LMP 04/28/22 with JABARI 02/02/23 [x] Labs: Rh [A-], Ab [negative], Rubella [immune], HIV [non-reactive], HepBSAg [non-reactive], RPR [non-reactive], Hep C [non-reactive], Varicella [not done], GC/CT [negative/negative] [x] Genetic Screening: NIPT low risk, Marion Carrier Screen: negative [x] CBC/Hgb 13.0/37.3/plt 289 [...] [] MOC: [] Method of feeding: [] Woodwind Reeds Cutter: [] PP Depression Discussed: Surgical History Surgery [...] Regular Well Visit/Exam 18-64 2013 Influenza Vaccine (#1) 2024 DTaP/Tdap/Td Vaccine (8 - Td or [...] Most Recently Relevant to Health Maintenance Insurance [employer] OOS [employer] O[employer] Care Teams Motorcycle Fabricator Relationship Specialty Start Date End Date Unknown, Notinfile PCP - General 10/21/22
--- OUTSIDE RECORDS SUMMARY | 2025-01-06 01:03 | XMS_ITS | Encounter Summary ---
Author Organization [facility] Address [address] [place] [address] Care Team Providers Care Sap Abap Developer Name Role Phone Vita Leon [facility] Primary Care Provider + Encounter Details Date Type Department Care Team (Late st Contact Info) Description 04/28/2022 [employer] Message [facility] [address] [place] [phone] [facility] [address] [facility], [address] [place] [address] Insulin Results Social History Tobacco Use Types Packs/Day Years Used Date Smoking Tobacco: Never Smokeless Tobacco: Never Alcohol Use Standard Drinks/Week Comments Yes 3 (1 standard drink = 0.6 oz pur e alcohol) PHQ-2 Answer Date Recorded Patient Health Questionnaire-2 Score 0 04/28/2022 Comments No Sex and Gender Information Value Date Recorded Sex Assigned at Female 06/05/2024 5:49 PM LINOLEUM FLOOR LAYER Legal Sex Female 11:19 PM CDT Gender Identity Female 11/05/2021 9:56 AM CDT Sexual Orientation Straight 11/05/2021 9: 56 AM CDT COVID-19 Exposure Response Date Recorded In the last 10 days, have yo u been in contact with someone who was confirmed or suspected to have Coronavirus/COVID-19? No / Unsure 04/28/2022 10:30 AM LINOLEUM FLOOR LAYER documented as of this encounter Functional Status * Over the past 2 weeks, how often have you been bothered by any of the following problems? Question Answer Date of Assessment Author Status Little interest or pleasure in doing things Not at all 04/28/2022 11:01 AM LINOLEUM FLOOR LAYER Starla Morgan Active Feeling down, depressed, or [...] Rule Out 06/23/2023 06/23/2023 06/23/2023 12:06 PM LINOLEUM FLOOR LAYER COVID-19 Rule Out 06/05/2024 06/05/2024 06/05/2024 5:38 PM LINOLEUM FLOOR LAYER documented as of this encounter Care Teams Sap Abap Developer Relationship Specialty Start Date End Date Vita Leon, SERVICE TECH-BC [address] [facility], [address] [place] [address] PCP - General NURSE PRACTITIONER 11/13/18 documented as of this encounter
--- OUTSIDE RECORDS SUMMARY | 2025-01-06 01:03 | XMS_ITS | Clinical Summary ---
Author Organization [facility] Address [facility] [place] [address] Care Team Providers Care Steward/Stewardess Economy Class Name Role Phone Vita Leon-ANISH Primary Care Provider + Allergies No known active allergies Medications vitamin ( PLUS) 27-1 MG tablet Take 1 tablet by mouth daily. Active triamcinolone (KENALOG) 0.1 % creamIndication s:Insect bite of left foot, initial encounter Apply topically 2 (two) times daily. 80 g 1 5 Active cephALEXin (KEFLEX) 500 MG capsuleIndicati ons:Cellulitis of left lower extremity Take 1 capsule (500 mg total) by mouth 2 (two) times daily for 10 days. 20 capsule 5 12/29/19 25 Active Problems Problem Noted Date Diagnosed Date At risk for infertility 11/05/2021 Overweight 11/05/2021 Estimated Date of Delivery Comme nts Yes 01/19/2025 Encounters Date Type Department Care Team Description 12/18/2024 3:20 PM CDT Office Visit [address] [phone] Vita Leon FNP-BC Insect Bite (Not getting better /) 12/18/2024 Travel 10/10/2024 12:00 PM CDT Office Visit [address] [phone] Edward, Vita M, MANAGER ACTUARIAL-BC Rash (Rash /On right shoulder/) 10/10/2024 Travel [...] Tobacco: Never Tobacco Cessation:Counseling Given: Not Answered Alcohol Use Standard Drinks/Week Comments Yes 3 (1 standard drink = 0.6 oz pur e alcohol) PHQ-2 Answer Date Recorded Patient Health Questionnaire-2 Score 0 12/18/2024 Estimated Date of Delivery Comme nts Yes 01/19/2025 Sex and Gender Information Value Date Recorded Sex Assigned at Female 06/05/2024 5:49 PM ROUTER TENDER Legal Sex Female 11:19 PM CDT Gender Identity Female 11/05/2021 9:56 AM CDT Sexual Orientation Straight 11/05/2021 9: 56 AM CDT Last Filed Vital Signs Vital Sign Reading Time Taken Comments Blood Pressure 126/62 12/18/2024 3:44 PM CDT Pulse 103 12/18/2024 3:24 PM CDT Temperature 36.5 C (97.7 F) 12/18/2024 3:24 PM CDT Respiratory Rate 20 12/18/2024 3:24 PM CDT Oxygen Saturation 97% 12/18/2024 3:24 PM CDT Inhaled Oxygen Concentration - - Weight 108.2 kg (238 lb 9.6 oz) 12/18/2024 3:24 PM CDT Height 170.2 cm (5' 7) 12/18/2024 3:24 PM CDT Body Mass Index 37.37 12/18/2024 3:24 PM CDT Plan of Treatment Health Maintenance Due Date Last Done Comments COVID-19 Vaccine ( season) 2024 04/26/2021, 07/07/2020 Annual Physical 02/05/2025 02/06/2024, 10/27/2020 [...] topic Hepatitis C Completed 11/18/2020 PHQ-2 (Physician [place]) Completed 12/18/2024 Meningococcal B Vaccine Aged Out No l [...] VE NON-REACTI VE 11/18/2020 6:27 PM CDT [facility] HEP B CORE IGM NON-REACTI VE NON-REACTI VE 11/18/2020 6:28 PM CDT [facility] HAV IGM NON-REACTI VE NON-REACTI VE 11/18/2020 6:28 PM CDT [facility] HEPATITIS C AB NON-REACTI VE NON-REACTI VE 11/18/2020 6:28 PM CDT [facility] 11/18/2020 7:54 AM CDT Vita Leon [facility] Final Re sult [facility] [address] [place] [address], [place] [phone] from Last 3 Months or Most Recently Relevant to Health Maintenance Insurance [employer] Care Teams Steward/Stewardess Economy Class Relationship Specialty Start Date End Date Vita Leon, MANAGER ACTUARIAL- [address] [facility], [address] [place] [address] PCP - General NURSE PRACTITIONER 11/13/18
--- OUTSIDE RECORDS SUMMARY | 2025-01-06 01:03 | XMS_ITS | Encounter Summary ---
Author Organization [facility] Address [address] [place] [address] Care Team Providers Care Rotary Planer Set Up Operator Name Role Phone Vita Leon [facility] Primary Care Provider + Encounter Details Date Type Department Care Team (Late st Contact Info) Description 09/26/2023 [employer] Message [address] [phone] [facility] Provider Lab results Social History Tobacco Use Types Packs/Day Years Used Date Smoking Tobacco: Never Smokeless Tobacco: Never Alcohol Use Standard Drinks/Week Comments Yes 3 (1 standard drink = 0.6 oz pur e alcohol) PHQ-2 Answer Date Recorded Patient Health Questionnaire-2 Score 0 09/21/2023 Comments No Sex and Gender Information Value Date Recorded Sex Assigned at Female 06/05/2024 5:49 PM CORPORATE MANAGER Legal Sex Female 11:19 PM CDT Gender Identity Female 11/05/2021 9:56 AM CDT Sexual Orientation Straight 11/05/2021 9: 56 AM CDT documented as of this encounter Plan of Treatment Not on file documented as of this encounter Visit Diagnoses Not on filedocumented in this encounter Additional Health Concerns Infection Onset Date Last Indicated Resolved Time COVID-19 Rule Out 06/05/2024 06/05/2024 06/05/2024 5:38 PM CORPORATE MANAGER documented as of this encounter Care Teams Rotary Planer Set Up Operator Relationship Specialty Start Date End Date Vita Leon [facility] [address] [place] [address], [address] [place] [address] PCP - General NURSE PRACTITIONER 11/13/18 documented as of this encounter
[2025-01-06 01:10] VITALS: BP 114/67; PULSE 80
[2025-01-06 01:23] LABS: OBXCEM ROM Plus Negative (Negative)
== END 2025-01-06 01:21 | disposition home or self-care (01) ==
LOC: ANHOBOP 01:01 → ANHLDR 01:02
PROVIDERS: Obstetrics & Gynecology; Visit Provider Obstetrics & Gynecology
DX: Z34.90 Encounter for supervision of normal pregnancy, unspecified, unspecified trimester (principal); Z3A.00 Weeks of gestation of pregnancy not specified
CPT/HCPCS: 59025; 84112; 99199

== ENCOUNTER 2025-01-08 15:45 | Outpatient (RCR) | payer OTHER, SELFPAY ==
[2024-10-23] MEDS: RHO(D) IMMUNE GLOBULIN 300 MCG/2 ML SYRINGE IM (20:14)
[2025-01-08 16:16] LABS: Hematocrit 32.1 % (37.0-47.0); Hemoglobin 10.8 g/dL (12.0-15.0); Immature Granulocyte Percent A 0.2 % (0-0.5); Lymphocytes Absolute Auto 1.98 K/mm3 (0.9-3.2); Mean Corpuscular HGB Conc 33.6 g/dl (32-36); Mean Corpuscular Hemoglobin 32.0 pg (26-34); Mean Corpuscular Volume 95.3 fl (80-100); Nucleated Red Blood Cells Absolute Auto 0.000 K/mm3 (0.0-0.012); Nucleated Red Blood Cells Perc 0.0 % (0.0-0.2); Platelet Count Result 272 k/mm3 (150-375); Red Blood Count 3.37 M/mm3 (4.2-5.4); White Blood Count 8.1 K/mm3 (4.5-10.0)
[2025-01-08 16:26] LABS: Alanine Aminotransferase 14 U/L (6-35); Albumin Level 3.4 g/dL (3.5-5.1); Alkaline Phosphatase 124 U/L (38-126); Anion Gap 6 mmol/L (4-12); Aspartate Amino Transferase 25 U/L (14-36); Bilirubin,Total 0.4 mg/dL (0.2-1.3); Blood Urea Nitrogen 5 mg/dL (7-17); Calcium 8.9 mg/dL (8.4-10.2); Carbon Dioxide 22 mmol/L (22-30); Chloride 106 mmol/L (98-107); Estimated Glomerular Filt Rate > 60; Glucose 75 mg/dL (65-110); Potassium 3.4 mmol/L (3.4-5.0); Sodium 134 mmol/L (137-145); Total Protein 6.5 g/dL (6.3-8.2); Uric Acid 3.6 mg/dL (2.5-7.5)
[2025-01-08 16:31] LABS: Add Urine Microscopic? YES; Appearance Urine Clear (Clear); Glucose Urine UA 1+ mg/dL (Negative); Leukocyte Esterase Ur 1+ LEU/UL (Negative); Nitrate Urine Negative (Negative); Non Pathogenic Casts 0-2; Specific Grav Ur 1.012 (1.001-1.035); Total Protein Urine Random 115 mg/dL; Ur Ttl Prot Creatinine Ratio 1.77 mg/mg (0-0.20)
[2025-01-08 17:05] VITALS: BP 115/69; PULSE 100
== END 2025-01-21 23:59 | disposition home or self-care (01) ==
LOC: ANHOBOP 15:45
PROVIDERS: Visit Provider Obstetrics & Gynecology
DX: Z29.13 Encounter for prophylactic Rho(D) immune globulin (principal); O36.0130 Maternal care for anti-D [Rh] antibodies, third trimester, not applicable or unspecified; Z3A.40 40 weeks gestation of pregnancy
CPT/HCPCS: 36415; 59025; 80053; 81001; 82570; 84156; 84550; 85025; 85461; 86850; 86900; 86901; 87086; 90384; 96372; J2790

== ENCOUNTER 2025-01-13 06:05 | Inpatient (IN) | payer OTHER, SELFPAY ==
[2025-01-13] VITALS (97 sets, daily range): BP systolic 83–150; BP diastolic 55–106; PULSE 66–135; RESP 16; TEMP 36.3–37.1; O2SAT 98–100; BMI 37.5
--- NOTE | 2025-01-13 06:58 | LDADM ---
This patient, Veronique Rivera, was admitted to Labor/Delivery/Recovery 103 on 01/13/25 at 06:05. Plans for labor, pain management and were discussed with patient. Patient/family oriented to hospital policies and general routines including ID bracelet, bed and alarms, visiting hours, pain management, procedures, bathroom and other care routines, personal items, smoking policy, room service/diet and guest tray routines, security routines, and visiting hours. Patient/Family are encouraged to report perceived risks to care and to ask questions if they do not understand what they are told or what they should do. See OBIX for further documentation.
[2025-01-13 07:14] LABS: Hematocrit 32.9 % (37.0-47.0); Hemoglobin 11.2 g/dL (12.0-15.0); Immature Granulocyte Percent A 0.4 % (0-0.5); Lymphocytes Absolute Auto 1.94 K/mm3 (0.9-3.2); Mean Corpuscular HGB Conc 34.0 g/dl (32-36); Mean Corpuscular Hemoglobin 32.6 pg (26-34); Mean Corpuscular Volume 95.6 fl (80-100); Nucleated Red Blood Cells Absolute Auto 0.000 K/mm3 (0.0-0.012); Nucleated Red Blood Cells Perc 0.0 % (0.0-0.2); Platelet Count Result 293 k/mm3 (150-375); Red Blood Count 3.44 M/mm3 (4.2-5.4); White Blood Count 7.6 K/mm3 (4.5-10.0)
[2025-01-13] MEDS: LACTATED RINGERS 1,000 ML 125 ML IV CONT ×3 (07:22→14:34)
[2025-01-13] MEDS: OXYTOCIN 30 UNITS/NS 500 ML 30 UNITS/500 ML BAG IV CONT (07:24)
[2025-01-13 07:49] LABS: Syphilis IgG/IgM Antibody Non-Reactive (Nonreactive)
--- NOTE | 2025-01-13 08:47 | PM.IMHP ---
H&P: HPI History of Present Illness Date/Time: 01/13/25 08:47 Chief Complaint: Here for induction of labor. Narrative: 29 y/o at 39 1/7 weeks here for induction of labor. She has no headache, visual field change, or upper abdominal pain. She has had a few mildly elevated bp readings, but nothing sustained. She had 2+ proteinuria, with a urine P:C ratio of 1.7. She is here for induction of labor. Feeling a few contractions. Review of Systems Review of Systems: All systems reviewed & are unremarkable except as noted in HPI and below PMFSH Past Medical History Medical History Anemia Anxiety Surgical History Surgical History [place] teeth removed Family History Family History Mother Breast cancer Grandparent Breast cancer Social History Social History Smoking status: Never smoker Substance use: never Do You Feel Safe in your Home?: No Lack of Transportation: No Lack of Food: Never True Current Housing: I Have Housing Concerned About Future Housing: No Difficulty Paying Gas/Electric Bills: No Difficulty Paying for Meds: No Currently Unemployed: No Education: Bachelor's Degree Difficulty w/ Childcare or Family Care: No Spiritual care concerns: No Meds Home Medications and Allergies Home Medications ?Medication ?Instructions ?Recorded ?Confirmed ?Type aspirin 81 mg tablet 81 mg PO DAILY 11/14/24 01/13/25 History docosahexaenoic acid 200 mg mg PO 11/14/24 12/25/24 History capsule ( DHA) Allergies Allergy/AdvReac Type Severity Reaction Status Date / Time No Known Allergies Allergy Verified 01/13/25 08:24 Vital Signs Vital Signs - 24 hr 01/13/25 06:45 01/13/25 06:58 01/13/25 07:03 Temperature 97.5 F L Pulse Rate 96 Blood Pressure 129/73 Oxygen Delivery Room Air 01/13/25 07:15 01/13/25 07:45 01/13/25 07:46 Temperature Pulse Rate 93 82 96 Blood Pressure 139/92 H 148/73 H 141/82 H Oxygen Delivery 01/13/25 08:00 01/13/25 08:16 01/13/25 08:30 Temperature 97.4 F L Pulse Rate 96 89 91 Blood Pressure 137/81 126/75 138/75 Oxygen Delivery 01/13/25 08:45 Temperature Pulse Rate 94 Blood Pressure 150/65 H Oxygen Delivery Exam Const: Other: Well-developed, well-nourished female in no acute distress. BP 130-150/80-90 Neck: Other: Neck: Trachea midline, no thyromegaly or masses. Resp: Other: Lungs: Normal respiratory effort. Clear to auscultation bilaterally. Cardio: Other: Heart: Regular rate and rhythm with normal S1-S2. GI: Other: ABD: Soft, nontender, nondistended, gravid. No guarding or rebound tenderness. No hepatosplenomegaly. NST reactive. TOCO: rare contractions. : Other: Cervix: 2-3/50/-2. AROM with clear fluid. Vertex. Back/Spine/Pelvis: Other: Back: No CVA tenderness. Skin: Other: Skin: No lesions, rashes or ulcers noted. Extrem: Other: Extremities: nontender with no edema Psych: Other: Mental status grossly normal, with normal mood and affect. H&P: Results Labs Labs: Short CBC 01/13/25 Range/Units 06:25 WBC 7.6 (4.5-10.0) K/mm3 Hgb 11.2 L (12.0-15.0) g/dL Hct 32.9 L (37.0-47.0) % Plt Count 293 (150-375) k/mm3 Assessment and Plan Assessment and plan (1) Term : Code(s): Z34.90 - Encounter for supervision of normal , unspecified, unspecified trimester Status: Acute Assessment and Plan: A: IUP at 39 1/7 weeks with likely mild preeclampsia. P: Oxytocin. Will monitory bp closely. Anticipate . (2) Pre-eclampsia, mild: Qualifiers: Trimester: third trimester Qualified Code(s): O14.03 - Mild to moderate pre-eclampsia, third trimester Code(s): O14.00 - Mild to moderate pre-eclampsia, unspecified trimester Status: Acute
--- NOTE | 2025-01-13 12:58 | PM.OBPNLAB ---
Pain Control Date/time seen: 01/13/25 12:58 Comments: Feeling some more contractions. Pelvic Exam Dilation (cm): 4 Effacement (%): 80 station: -2 Comments: IUPC placed Contractions Contraction pattern: Irregular Contraction intensity: Mild Status status: Category l Assessment and Plan Pitocin rate (mU/min): 14 Comments: IUPC placed. Continue labor.
[2025-01-13] MEDS: ONDANSETRON INJ 4 MG/2 ML VIAL IV PUSH (14:58)
--- NOTE | 2025-01-13 16:16 | PM.OBPNLAB ---
Pain Control Date/time seen: 01/13/25 16:16 Comments: Now more comfortable with epidural. Pelvic Exam Dilation (cm): 6 Effacement (%): 90 station: -2 Contractions Contraction frequency: 4 Contraction pattern: Regular Status status: Category l Assessment and Plan Pitocin rate (mU/min): 14 Comments: Continue labor.
--- NOTE | 2025-01-13 17:19 | S_PTH ---
PATIENT: Veronique Rivera LOC: [facility] U#:[id number] AGE/SX: 29/F ROOM: 284 RE01/13/[address]: Vidal Phelan MD : 1995 BED: 00 DIS: 01/14/2025 SPEC #: [id number] RECD: 01/14/25 08:42 STATUS: NATALY REQ #: [id number] DESIRE: 01/13/25 17:[address]: Vidal Phelan DEPT: [facility] Surgical RECD BY: Fatuma Butler MLT, ([facility]) ENTERED: 01/14/25 08:42 SP TYPE: Surgical OTHR DR: UNKNOWN,DOCTOR Tissues: A - Placenta Procedures: Hematoxylin and Eosin Stain Gross and Microscopic Level 5
--- NOTE | 2025-01-13 17:27 | PM.OBPRVD ---
OB - Vaginal Delivery Note Procedure Delivery date: 01/13/25 Events: Preeclampsia w/o severe features Induction method: Per Pitocin Protocol Delivery augmentation: Rupture of Membranes Delivery monitor: External FHT, External Uterine and Internal Uterine Route of delivery: Episiotomy description: None Laceration Description: None Specimen: Yes (placenta, cord blood) Quantitative Blood Loss (ml): 85 Anesthesia type: Epidural Disposition: PACU Complications: None Narrative: 29 y/o at 39 1/7 weeks gestation who presented to the hospital for induction of labor. Oxytocin was administered intravenously. Amniotomy was performed with return of clear fluid. She received an epidural for pain control. Her labor progressed and her cervix dilated completely. She pushed with good effort and delivered the infant's head to the perineum, followed by the body. The nose and mouth were bulb suctioned. After a delay, the cord was clamped and cut. The was handed off the field. Cord blood was collected. The placenta delivered spontaneously and was grossly normal in appearance. The usual 3 vessel cord was noted. There were no lacerations. Needle and instrument counts were correct. The patient was taken to recovery room in stable condition. The infant went to the nursery in stable condition. I was present and scrubbed for the entire delivery. Baby Date of : 01/13/25 Time of : 17:15 Gestational Age by Date: 39 gender: Female presentation: vertex position: Left Occiput Anterior Placenta delivery description: Spontaneous and Normal Configuration Cord Vessel Description: 3 Vessels and Delayed Cord Clamping score one minute: 9 score five minutes: 9
--- NOTE | 2025-01-13 17:30 | PM.OBDSVD ---
DS: Admitting Diagnosis Discharge Date 01/14/25 Admitting Diagnosis IUP at 39 1/7 weeks Mild preeclampsia DS: Discharge Diagnosis Discharge Diagnosis (1) (normal spontaneous vaginal delivery): Code(s): O80 - Encounter for full-term uncomplicated delivery Status: Acute (2) Pre-eclampsia, mild: Qualifiers: Trimester: third trimester Qualified Code(s): O14.03 - Mild to moderate pre-eclampsia, third trimester Code(s): O14.00 - Mild to moderate pre-eclampsia, unspecified trimester Status: Acute OB - DS: Summary OB Procedures : PIH Mgmt OB Procedures Intrapartum: Spontaneous Vag Delivery OB Procedures: : None Peripartum Data Laceration Description: None Episiotomy description: None Time Spent with Patient Time attestation: Total time spent providing and/or coordinating discharge services: DS: Data Data Completed and Pending Labs on day of discharge: Labs from last 24 hours 01/13/25 06:25 WBC 7.6 RBC 3.44 L Hgb 11.2 L Hct 32.9 L MCV 95.6 MCH 32.6 MCHC 34.0 RDW 14.0 Plt Count 293 MPV 8.9 Immature Gran % (Auto) 0.4 Neut % (Auto) 66.6 Lymph % (Auto) 25.7 Mcculloch % (Auto) 5.3 Eos % (Auto) 1.7 Baso % (Auto) 0.3 Lymph # (Auto) 1.94 Mcculloch # (Auto) 0.4 Eos # (Auto) 0.1 Baso # (Auto) 0.0 Abs Immat Gran (auto) 0.03 Absolute Neuts (auto) 5.0 Absolute Nucleated RBC 0.000 Nucleated RBC % 0.0 Syphilis IgG/IgM Ab Non-reactive Blood Type A Negative Antibody Screen Negative Discharge Plan Discharge Attending physician on discharge: Vidal Phelan Discharging Clinician: Vidal Phelan Patient Disposition: Home Activity: pelvic rest Diet: regular Discharge Instructions: Call or return if temperature above 100.4? F, increased abdominal pain, increased vaginal bleeding or any new problems. Patient Language: Kiswahili Stand Alone Forms: General Discharge Information Follow-up/Referrals: Vidal Phelan MD [Physician, CONTRACTS ATTORNEY] - 6 Weeks Discharge Medications: New ibuprofen 600 mg tablet 600 mg PO Q6H PRN (Reason: cramps) Qty: 30 0RF Continued DHA 200 mg capsule PO Discontinued aspirin 81 mg tablet 81 mg PO DAILY Date of admission: 01/13/25 06:05 Primary Care Provider: UNKNOWN,DOCTOR Admitting Provider: Vidal Phelan Attending physician on admission: Vidal Phelan Condition: Stable
[2025-01-13] MEDS: OXYTOCIN 30 UNITS/NS 500 ML 30 UNITS/500 ML BAG 125 UNITS IV CONT (17:46)
--- NOTE | 2025-01-13 19:50 | OBPPTRN ---
Patient transferred to post room #284 via wheelchair. Support person present. Oriented to unit, room, information board, rooming in, admission packet and security measures. Patient verbalizes understanding.
[2025-01-14 00:10] VITALS: BP 120/75; PULSE 84; RESP 16; TEMP 36.8; O2SAT 98
[2025-01-14 04:00] VITALS: BP 103/72; PULSE 99; RESP 17; TEMP 36.8; O2SAT 98
[2025-01-14 04:34] LABS: Hematocrit 32.9 % (37.0-47.0); Hemoglobin 11.0 g/dL (12.0-15.0)
--- NOTE | 2025-01-14 07:49 | WPDANLDPN2 ---
Anes-Prog Note L&D Date/Time: 01/14/25 07:49 Comfortable throughout: labor and delivery Neuraxial method: epidural Epidural/Spinal procedure site: clean & non-tender Neuro status: Neuro function grossly intact. Cardiovascular status: normal Respiratory status: normal Airway patency: baseline Mental status: baseline Post-Op hydration status: normal Vital Signs: Last Vital Signs Temp 36.8 C 01/14/25 04:00 Pulse 99 01/14/25 04:00 Resp 17 01/14/25 04:00 BP 103/72 01/14/25 04:00 Pulse Ox 98 01/14/25 04:00 O2 Del Method Room Air 01/13/25 20:00 Pain score (VAS): 2 I/O: Intake & Output 01/13/25 01/13/25 01/14/25 15:59 23:59 07:59 Intake Total 1758.3 Balance 1758.3 Post-procedural complaints: none Patient feedback: Patient satisfied with anesthetic care.
[2025-01-14 07:50] VITALS: BP 115/75; PULSE 87; RESP 16; TEMP 37.1; O2SAT 99
--- NOTE | 2025-01-14 09:00 | P.PNOB_ITS ---
OB - PN: Subj Subjective Date/time seen: 01/14/25 09:00 Narrative: Pain OK. Would like to go home this evening. Baby Rh neg. OB - PN: Obj Data Labs 01/14/25 04:02 Labs: Laboratory Results - last 24 hr 01/14/25 04:02 Hgb 11.0 L Hct 32.9 L OB - PN A/P Plan day: 1 Comments: A: PPD#1, doing well. P: Home to f/u 6 weeks. Exam 2 Psych: Other: AVSS ABD soft, nontender, fundus firm EXT nontender
--- NOTE | 2025-01-14 10:15 | PC.NURSE ---
Introductions were made, then consulted with patient to assess needs related to . Discussed with mother her?plans to feed?her and the?experience so far. Mother states that infant has been very sleepy and not latching well. She has been pumping and supplementing with expressed milk and formula. Encouraged continued pumping at any feeding when baby does not eat at breast. Reviewed ways to flange out baby's bottom lip, skin to skin, early feeding cues, and normal behavior in the first 24 hours of life. Resources provided for inpatient and outpatient services with the feeding sheet, mom/baby guide and name written on the communication board. Mother voiced understanding of information and will call when there is a request for assistance. Reported to the Primary RN.
[2025-01-14 12:19] VITALS: BP 117/70; PULSE 96; RESP 16; TEMP 36.6; O2SAT 98
[2025-01-16 10:25] VITALS: BP 121/76; PULSE 87; RESP 18; TEMP 36.9; O2SAT 97
== END 2025-01-14 19:22 | disposition home or self-care (01) | DRG 807 ==
LOC: ANHLDR 17:32 → ANHOB2 19:52
PROVIDERS: Admitting Provider Obstetrics & Gynecology; Visit Provider Obstetrics & Gynecology
DX: O14.04 Mild to moderate pre-eclampsia, complicating childbirth (principal); Z37.0 Single live birth; Z3A.39 39 weeks gestation of pregnancy
CPT/HCPCS: 36415; 85014; 85018; 85025; 86593; 86850; 86900; 86901; 88307; A9270; J2405; J2590; J2795; J7120